=== PATIENT | female | born 1990 | race African-American/Black ===

== ENCOUNTER 2016-10-05 14:12 | Emergency (ER) | payer SELFPAY ==
[~2016-10-05] VITALS: Ht 157.5 cm; Wt 63.5 kg
[~2016-10-05 14:12] MED LIST: ACETAMINOPHEN-1 EAC1 ORAL; AMOXICILLIN500 MG ORAL; CEPHALEXIN500 MG ORAL; CIPRO500 MG PO; CIPROFLOXACIN500 M2 ORAL; COMPAZINE10 MG ORAL; DOXYCYCLINE MO100 MG ORAL; FLOMAX0.4 MG ORAL; IBUPROFEN600 MG ORAL; KEFLEX500 MG ORAL; METRONIDAZOLE500 MG ORAL; NAPROXEN375 M2 ORAL; NKM; NORCO 5-325 TA1 EACH ORAL; OMEPRAZOLE20 M2 ORAL; OMEPRAZOLE40 M1 ORAL; PERCOCET 5-3251 EACH ORAL; PROTONIX40 MG ORAL; REGLAN10 MG ORAL; TRAMADOL HCL50 MG ORAL; ZANTAC150 MG ORAL; ZOFRAN ODT4 MG ORAL; ZOFRAN4 MG ORAL
[2016-10-05] MEDS ORDERED: Morphine Sulfate 4mg/ml Inj IVP ONE ×2 (14:30→15:45)
[2016-10-05] MEDS ORDERED: Famotidine 20 MG/ 2ML VIAL IVP ONE (14:30)
[2016-10-05 15:01] LABS: BASOPHILS % (AUTO) 0.5 % (0.0-2.0); EOSINOPHILS % (AUTO) 0.7 % (0.0-3.0); LYMPHOCYTES % (AUTO) 38.4 % (20.0-45.0); MEAN CORPUSCULAR HEMOGLOBIN 28.6 PG (27.0-31.0); MEAN CORPUSCULAR HGB CONC 32.2 G/DL (32.0-36.0); MEAN CORPUSCULAR VOLUME 89 FL (80-99); MEAN PLATELET VOLUME 6.3 FL (6.5-10.1); MONOCYTES % (AUTO) 9.7 % (1.0-10.0); NEUTROPHILS % (AUTO) 50.6 % (45.0-75.0); PLATELET COUNT 270 K/UL (150-450); RED BLOOD COUNT 4.89 M/UL (4.20-5.40); RED CELL DISTRIBUTION WIDTH 12.6 % (11.6-14.8); WHITE BLOOD COUNT 10.1 K/UL (4.8-10.8)
[2016-10-05 15:18] VITALS: BP 100/79
[2016-10-05 15:20] LABS: ALANINE AMINOTRANSFERASE 14 U/L (3-33); ALBUMIN/GLOBULIN RATIO 1.5 (1.0-2.7); ANION GAP 19 (5-15); ASPARTATE AMINO TRANSFERASE 19 U/L (5-40); CARBON DIOXIDE 21 mEQ/L (20-30); CHLORIDE 102 mEQ/L (98-107); CREATININE 0.7 mg/dL (0.5-0.9); GLOMERULAR FILTRATION RATE > 60 mL/min (>60); HEMOLYSIS 2; LIPASE 18 U/L (< 60); POTASSIUM 3.6 mEQ/L (3.4-4.9); SODIUM 142 mEQ/L (135-145)
[2016-10-05 16:21] LABS: KETONES,URINE 3+ (NEGATIVE); LEUKOCYTE ESTERASE ,URINE NEGATIVE (NEGATIVE); NITRITE,URINE NEGATIVE (NEGATIVE); PH,URINE 8 (4.5-8.0); PROTEIN,URINE NEGATIVE (NEGATIVE); UROBILINOGEN,URINE NORMAL MG/DL (0.0-1.0)
[2016-10-05 16:23] LABS: APPEARANCE,URINE CLEAR
[2016-10-05] MEDS ORDERED: TRAMADOL HCL50 MG ORAL (16:51)
[2016-10-05] MEDS ORDERED: ZOFRAN ODT4 MG ORAL (16:51)
[2016-10-05 17:07] VITALS: BP 115/89
--- NOTE | 2016-10-05 18:17 | Emergency Room Report ---
History of Present Illness General Chief Complaint: Abdominal Pain Source: EMS Present Illness HPI 26-year-old female presents ED complaining of abdominal pain and vomiting. The symptoms started this morning. Pain is localized left lower quadrant, 10 of 10 , nonradiating. No aggravating relieving factors. Patient states she has history of kidney stones. Multiple episodes of vomiting. Denies fevers or chills. No other aggravating or relieving factors. Denies any other associated symptoms Allergies: Coded Allergies: ASCORBIC ACID (Verified Allergy, Unknown, 10/31/13) Uncoded Allergies: VITAMIN C (Allergy, Severe, 01/17/14) Patient History Past Medical History: none Past Surgical History: none Pertinent Family History: none Social History: Denies: alcohol use, drug use, smoking Last Menstrual Period: on period Now: No Immunizations: UTD Reviewed Nursing Documentation: PMH: Agreed, PSxH: Agreed Nursing Documentation-PMH Past Medical History: No History, Except For Hx Cancer: No Hx Neurological Problems: No Review of Systems All Other Systems: negative except mentioned in HPI Physical Exam Vital Signs Date Time Temp Pulse Resp B/P Pulse Ox O2 Delivery O2 Flow Rate FiO2 10/05/16 14:12 97.9 84 18 144/87 99 Room Air Sp02 EP Interpretation: reviewed, normal General Appearance: alert, GCS 15, non-toxic, mild distress Head: normocephalic Eyes: bilateral eye PERRL, bilateral eye normal inspection ENT: normal ENT inspection Neck: normal inspection Respiratory: chest non-tender, lungs clear, normal breath sounds, speaking full sentences Cardiovascular #1: regular rate, rhythm, no edema Gastrointestinal: normal bowel sounds, soft, non-distended, no guarding, no rebound, other - LLQ Rectal: deferred Genitourinary: no CVA tenderness Musculoskeletal: normal inspection Neurologic: alert, oriented x3, responsive, motor strength/tone normal, sensory intact, speech normal Psychiatric: normal inspection Skin: normal inspection Lymphatic: normal inspection Medical Decision Making Diagnostic Impression: Primary Impression: Cyclical vomiting Qualified Codes: G43.A0 - Cyclical vomiting, not intractable ER Course Hospital Course 26-year-old F presents to ED with LLQ with N/V. differential diagnosis: gastritis, diverticulitis, kidney stones Clinical course Patient placed on stretcher. 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 After initial history and physical I ordered labs, IV fluids, pain meds, Zofran, pepcid and CT labs - no leukocytosis, no electrolyte abnormalities, LFTs normal, UA unremarkable no blood in UA patient declines CT Upon reassessment, patient states pain has improved. Patient smokes marijuana. Likely cyclical vomiting syndrome I feel this is a highly complex case requiring extensive working including EKG/ Rhythm strip, Xray/CT/US, Blood/urine lab work, repeat exams while in ED, and administration of strong opiates/narcotics for pain control, admission to hospital or close patient follow up. Diagnosis -cyclical vomiting Stable and discharged to home with prescriptions for zofran, tramadol. Followup with PMD. Return to ED if symptoms recur or worsen Labs Test 10/05/16 14:30 10/05/16 15:50 White Blood Count 10.1 K/UL (4.8-10.8) Red Blood Count 4.89 M/UL (4.20-5.40) Hemoglobin 14.0 G/DL (12.0-16.0) Hematocrit 43.4 % (37.0-47.0) Mean Corpuscular Volume 89 FL (80-99) Mean Corpuscular Hemoglobin 28.6 PG (27.0-31.0) Mean Corpuscular Hemoglobin Concent 32.2 G/DL (32.0-36.0) Red Cell Distribution Width 12.6 % (11.6-14.8) Platelet Count 270 K/UL (150-450) Mean Platelet Volume 6.3 FL (6.5-10.1) Neutrophils (%) (Auto) 50.6 % (45.0-75.0) Lymphocytes (%) (Auto) 38.4 % (20.0-45.0) Monocytes (%) (Auto) 9.7 % (1.0-10.0) Eosinophils (%) (Auto) 0.7 % (0.0-3.0) Basophils (%) (Auto) 0.5 % (0.0-2.0) Sodium Level 142 mEQ/L (135-145) Potassium Level 3.6 mEQ/L (3.4-4.9) Chloride Level 102 mEQ/L (98-107) Carbon Dioxide Level 21 mEQ/L (20-30) Anion Gap 19 (5-15) Blood Urea Nitrogen 8 mg/dL (7-23) Creatinine 0.7 mg/dL (0.5-0.9) Estimat Glomerular Filtration Rate > 60 mL/min (>60) Glucose Level 116 mg/dL (74-106) Calcium Level 9.0 mg/dL (8.6-10.2) Total Bilirubin 0.6 mg/dL (0.0-1.2) Aspartate Amino Transf (AST/SGOT) 19 U/L (5-40) Alanine Aminotransferase (ALT/SGPT) 14 U/L (3-33) Alkaline Phosphatase 53 U/L (35-104) Total Protein 7.0 g/dL (6.6-8.7) Albumin 4.3 g/dL (3.5-5.2) Globulin 2.7 g/dL Albumin/Globulin Ratio 1.5 (1.0-2.7) Lipase 18 U/L (< 60) Urine Color Pale yellow Urine Appearance Clear Urine pH 8 (4.5-8.0) Urine Specific [place] 1.010 (1.005-1.035) Urine Protein Negative (NEGATIVE) Urine Glucose (UA) Negative (NEGATIVE) Urine Ketones 3+ (NEGATIVE) Urine Occult Blood Negative (NEGATIVE) Urine Nitrite Negative (NEGATIVE) Urine Bilirubin Negative (NEGATIVE) Urine Urobilinogen Normal MG/DL (0.0-1.0) Urine Leukocyte Esterase Negative (NEGATIVE) Urine HCG, Qualitative Negative Urine Opiates Screen Positive (NEGATIVE) Urine Barbiturates Screen Negative (NEGATIVE) Phencyclidine (PCP) Screen Negative (NEGATIVE) Urine Amphetamines Screen Negative (NEGATIVE) Urine Benzodiazepines Screen Negative (NEGATIVE) Urine Cocaine Screen Negative (NEGATIVE) Urine Marijuana (THC) Screen Positive (NEGATIVE) Last Vital Signs Date Time Temp Pulse Resp B/P Pulse Ox O2 Delivery O2 Flow Rate FiO2 10/05/16 17:07 97.2 68 15 115/89 100 Room Air Status: improved Disposition: HOME, SELF-CARE Condition: Stable Scripts Tramadol Hcl* (ULTRAM*) 50 Mg Tablet 50 MG ORAL Q6H Y for For Pain, #20 TAB 0 Refills Prov: CHERELLE CID M.D. 10/05/16 Ondansetron Odt* (ZOFRAN ODT*) 4 Mg Tab.rapdis 4 MG ORAL Q6H Y for Nausea & Vomiting, #30 TAB 0 Refills Prov: CHERELLE CID M.D. 10/05/16 Patient Instructions: Nausea, Adult, [id number] CHERELLE CID M.D. Oct 05, 2016 18:16
== END 2016-10-05 17:08 | disposition home or self-care (01) ==
LOC: EDBD 14:12 → EMR 14:20
DX: G43.A0 Cyclical vomiting, in migraine, not intractable (principal)
CPT/HCPCS: 36415; 80053; 80300; 81003; 81025; 83690; 85025; 96374; 96375; 99284; J2270; J2405; S0028

== ENCOUNTER 2016-11-02 15:25 | Emergency (ER) | payer SELFPAY ==
[~2016-11-02] VITALS: Ht 162.6 cm; Wt 52.2 kg
[2016-11-02 16:16] LABS: BASOPHILS % (AUTO) 0.5 % (0.0-2.0); EOSINOPHILS % (AUTO) 0.1 % (0.0-3.0); LYMPHOCYTES % (AUTO) 13.9 % (20.0-45.0); MEAN CORPUSCULAR HEMOGLOBIN 29.2 PG (27.0-31.0); MEAN CORPUSCULAR HGB CONC 33.4 G/DL (32.0-36.0); MEAN CORPUSCULAR VOLUME 87 FL (80-99); MEAN PLATELET VOLUME 6.1 FL (6.5-10.1); MONOCYTES % (AUTO) 10.8 % (1.0-10.0); NEUTROPHILS % (AUTO) 74.7 % (45.0-75.0); PLATELET COUNT 236 K/UL (150-450); RED BLOOD COUNT 4.49 M/UL (4.20-5.40); RED CELL DISTRIBUTION WIDTH 12.6 % (11.6-14.8); WHITE BLOOD COUNT 13.5 K/UL (4.8-10.8)
[2016-11-02] MEDS ORDERED: Ketorolac 30mg Inj IV ONE (16:30)
[2016-11-02 16:33] LABS: ALANINE AMINOTRANSFERASE 13 U/L (3-33); ALBUMIN/GLOBULIN RATIO 1.6 (1.0-2.7); ANION GAP 20 (5-15); ASPARTATE AMINO TRANSFERASE 16 U/L (5-40); CALCIUM 9.5 mg/dL (8.6-10.2); CARBON DIOXIDE 22 mEQ/L (20-30); CHLORIDE 97 mEQ/L (98-107); CREATININE 0.7 mg/dL (0.5-0.9); GLOMERULAR FILTRATION RATE > 60 mL/min (>60); HEMOLYSIS 3; LIPASE 20 U/L (< 60); POTASSIUM 3.1 mEQ/L (3.4-4.9); SODIUM 139 mEQ/L (135-145); TOTAL PROTEIN 7.3 g/dL (6.6-8.7)
[2016-11-02 16:59] VITALS: BP 123/65
[2016-11-02 18:23] LABS: APPEARANCE,URINE SLIGHTLY CLOUDY; KETONES,URINE 2+ (NEGATIVE); LEUKOCYTE ESTERASE ,URINE 2+ (NEGATIVE); NITRITE,URINE POSITIVE (NEGATIVE); PH,URINE 6.5 (4.5-8.0); PROTEIN,URINE 3+ (NEGATIVE); UROBILINOGEN,URINE 4 MG/DL (0.0-1.0)
[2016-11-02 18:38] LABS: BACTERIA,URINE MANY /HPF; RBC,URINE 40-60 /HPF (0 - 2); SQUAMOUS EPITHELIAL CELL,UR FEW /LPF (NONE/OCC)
[2016-11-02 18:40] LABS: AMORPHOUS SEDIMENT,UR FEW /LPF; ICTOTEST NEGATIVE; MUCUS,URINE FEW /LPF (NONE/OCC)
[2016-11-02] MEDS ORDERED: cefTRIAXone 1 GM in NS 55 ML IVPB ONE (19:00)
[2016-11-02] MEDS ORDERED: Morphine Sulfate 4mg/ml Inj IVP ONE (21:00)
--- NOTE | 2016-11-02 22:14 | Emergency Room Report ---
History of Present Illness General Chief Complaint: Abdominal Pain Source: Patient, EMS Present Illness HPI This patient states that she developed left lower quadrant abdominal pain suddenly about 2 days ago. She states this is very similar to previous kidney stone that she had. She states it feels exactly the same way. She is also had nausea but no vomiting. She denies fever or chills. She has been constipated. She has had blood in her urine. She denies dysuria. She has no other complaints. Allergies: Coded Allergies: ASCORBIC ACID (Verified Allergy, Unknown, 10/31/13) Uncoded Allergies: VITAMIN C (Allergy, Severe, 01/17/14) Patient History Past Medical History: see triage record, other - kidney stones Past Surgical History: none Social History: Denies: alcohol use, drug use, smoking Last Menstrual Period: 10/05/16 Now: No Reviewed Nursing Documentation: PMH: Agreed, PSxH: Agreed Nursing Documentation-PMH Past Medical History: No History, Except For Hx Cancer: No Hx Neurological Problems: No Review of Systems All Other Systems: negative except mentioned in HPI Physical Exam Vital Signs Date Time Temp Pulse Resp B/P Pulse Ox O2 Delivery O2 Flow Rate FiO2 11/02/16 15:18 99.0 79 16 120/74 98 11/02/16 16:59 Room Air Sp02 EP Interpretation: reviewed, normal General Appearance: no apparent distress, alert, GCS 15, non-toxic Head: normocephalic, atraumatic Eyes: bilateral eye PERRL, bilateral eye normal inspection ENT: hearing grossly normal, normal pharynx, no angioedema, normal voice Neck: full range of motion, supple/symm/no masses Respiratory: chest non-tender, lungs clear, normal breath sounds, speaking full sentences Cardiovascular #1: regular rate, rhythm, no edema Gastrointestinal: normal bowel sounds, soft, non-distended, no guarding, no rebound, tenderness - TTP LLQ Rectal: deferred Genitourinary: CVA tenderness (L) Musculoskeletal: back normal, gait/station normal, normal range of motion, non- tender Neurologic: alert, oriented x3, responsive, motor strength/tone normal, sensory intact, speech normal Psychiatric: judgement/insight normal, memory normal, mood/affect normal, no suicidal/homicidal ideation Skin: normal color, no rash, warm/dry, well hydrated Medical Decision Making Diagnostic Impression: Primary Impression: Kidney stone Additional Impression: UTI ER Course This patient presents with a left sided kidney stone. She also has a urinary tract infection. At this time she does not have obstruction of the ureter, however given the size of the stone and a urinary tract infection I felt that this patient should be admitted for IV antibiotics and monitoring. However, the patient declined and left AGAINST MEDICAL ADVICE. The patient did agree to take oral antibiotics and take Flomax. The patient was given very close return precautions and invited to return if she changed her mind. Labs Test 11/02/16 15:50 11/02/16 16:00 Urine Color Brown Urine Appearance Slightly cloudy Urine pH 6.5 (4.5-8.0) Urine Specific [place] 1.020 (1.005-1.035) Urine Protein 3+ (NEGATIVE) Urine Glucose (UA) Negative (NEGATIVE) Urine Ketones 2+ (NEGATIVE) Urine Occult Blood 5+ (NEGATIVE) Urine Nitrite Positive (NEGATIVE) Urine Bilirubin 1+ (NEGATIVE) Urine Ictotest Negative Urine Urobilinogen 4 MG/DL (0.0-1.0) Urine Leukocyte Esterase 2+ (NEGATIVE) Urine RBC 40-60 /HPF (0 - 2) Urine WBC 10-15 /HPF (0 - 2) Urine Squamous Epithelial Cells Few /LPF (NONE/OCC) Urine Amorphous Sediment Few /LPF (NONE) Urine Bacteria Many /HPF (NONE) Urine Mucus Few /LPF (NONE/OCC) Urine HCG, Qualitative Negative White Blood Count 13.5 K/UL (4.8-10.8) Red Blood Count 4.49 M/UL (4.20-5.40) Hemoglobin 13.1 G/DL (12.0-16.0) Hematocrit 39.2 % (37.0-47.0) Mean Corpuscular Volume 87 FL (80-99) Mean Corpuscular Hemoglobin 29.2 PG (27.0-31.0) Mean Corpuscular Hemoglobin Concent 33.4 G/DL (32.0-36.0) Red Cell Distribution Width 12.6 % (11.6-14.8) Platelet Count 236 K/UL (150-450) Mean Platelet Volume 6.1 FL (6.5-10.1) Neutrophils (%) (Auto) 74.7 % (45.0-75.0) Lymphocytes (%) (Auto) 13.9 % (20.0-45.0) Monocytes (%) (Auto) 10.8 % (1.0-10.0) Eosinophils (%) (Auto) 0.1 % (0.0-3.0) Basophils (%) (Auto) 0.5 % (0.0-2.0) Sodium Level 139 mEQ/L (135-145) Potassium Level 3.1 mEQ/L (3.4-4.9) Chloride Level 97 mEQ/L (98-107) Carbon Dioxide Level 22 mEQ/L (20-30) Anion Gap 20 (5-15) Blood Urea Nitrogen 8 mg/dL (7-23) Creatinine 0.7 mg/dL (0.5-0.9) Estimat Glomerular Filtration Rate > 60 mL/min (>60) Glucose Level 113 mg/dL (74-106) Calcium Level 9.5 mg/dL (8.6-10.2) Total Bilirubin 0.7 mg/dL (0.0-1.2) Aspartate Amino Transf (AST/SGOT) 16 U/L (5-40) Alanine Aminotransferase (ALT/SGPT) 13 U/L (3-33) Alkaline Phosphatase 57 U/L (35-104) Total Protein 7.3 g/dL (6.6-8.7) Albumin 4.5 g/dL (3.5-5.2) Globulin 2.8 g/dL Albumin/Globulin Ratio 1.6 (1.0-2.7) Lipase 20 U/L (< 60) Human Chorionic Gonadotropin, Qual Negative CT/MRI/US Diagnostic Results CT/MRI/US Diagnostic Results : Imaging Test Ordered: CT abd/pelvis Impression 6 mm nonobstructive stone a left kidney. Normal appendix. Left ovarian cyst 2- 3 cm. Last Vital Signs Date Time Temp Pulse Resp B/P Pulse Ox O2 Delivery O2 Flow Rate FiO2 11/02/16 16:59 98.9 83 19 123/65 98 Room Air Disposition: AGAINST MEDICAL ADVICE Condition: Serious Referrals: NOT CHOSEN [facility]/,REFERRING (PCP) ANA LILIA MENDEZ D.O. Nov 02, 2016 22:13
[2016-11-02] MEDS ORDERED: Tamsulosin 0.4mg cap ORAL ONE (22:15)
[2016-11-02] MEDS ORDERED: TAMSULOSIN HCL0.4 MG ORAL (22:16)
[2016-11-02] MEDS ORDERED: PERCOCET 5-3251 EACH ORAL (22:16)
[2016-11-02] MEDS ORDERED: NITROFURANTOIN100 M2 ORAL (22:16)
[2016-11-02 22:36] VITALS: BP 134/77
--- NOTE | 2016-11-03 09:38 | Diagnostic Imaging Report ---
Indication: Abdominal pain Technique: Continuous helical transaxial imaging of the abdomen and pelvis was obtained from the lung bases to the pubic symphysis. No intravenous contrast was administered. Coronal 2-D reformats were also obtained. Total Dose length Product (DLP): [address] Dose Index Volume (CTDIvol): 11 mGy Comparison: none Findings: There is a 6-7 mm stone in the left kidney lower pole. There is no hydronephrosis. The appendix is seen and appear normal. There is a cyst in the left ovary likely present measuring about 2.5 cm. There is no evidence of bowel obstruction, free fluid or free air. Evaluation of solid organs is limited on this study done without IV contrast material. Impression: Nonobstructive stone in the left kidney. Suggestion of left ovarian cyst Normal appendix The CT scanner at [facility] is accredited by the [employer] and the scans are performed using protocols designed to limit radiation exposure to as low as reasonably achievable to attain images of sufficient resolution adequate for diagnostic evaluation.
== END 2016-11-02 22:36 | disposition left against medical advice (07) ==
LOC: EDBD 15:25 → EMR 16:43 → CANBEDREQ 22:20 → EMR 22:36
DX: N20.0 Calculus of kidney (principal); N39.0 Urinary tract infection, site not specified
CPT/HCPCS: 36415; 74176; 80053; 81003; 81025; 83690; 84703; 85025; 87086; 96374; 96375; 99284; J0696; J1885; J2270; J2405

== ENCOUNTER 2016-12-23 07:37 | Emergency (ER) | payer SELFPAY ==
[~2016-12-23] VITALS: Ht 157.5 cm; Wt 59.0 kg
[~2016-12-23 07:37] MED LIST changes: +NITROFURANTOIN100 M2 ORAL; +TAMSULOSIN HCL0.4 MG ORAL
[2016-12-23] MEDS ORDERED: Morphine Sulfate 4mg/ml Inj IVP ONE (07:45)
[2016-12-23] MEDS ORDERED: Metoclopramide 10mg/2ml Inj IVP ONE (08:15)
[2016-12-23 08:33] VITALS: BP 108/79
[2016-12-23 08:40] LABS: MEAN CORPUSCULAR HEMOGLOBIN 29.5 PG (27.0-31.0); MEAN CORPUSCULAR HGB CONC 32.5 G/DL (32.0-36.0); MEAN CORPUSCULAR VOLUME 91 FL (80-99); MEAN PLATELET VOLUME 6.6 FL (6.5-10.1); PLATELET COUNT 239 K/UL (150-450); RED CELL DISTRIBUTION WIDTH 13.2 % (11.6-14.8)
[2016-12-23 08:40] LABS: APPEARANCE,URINE CLOUDY; KETONES,URINE 4+ (NEGATIVE); LEUKOCYTE ESTERASE ,URINE 1+ (NEGATIVE); NITRITE,URINE NEGATIVE (NEGATIVE); PH,URINE 8 (4.5-8.0); PROTEIN,URINE 1+ (NEGATIVE); UROBILINOGEN,URINE NORMAL MG/DL (0.0-1.0)
[2016-12-23 08:53] LABS: ALANINE AMINOTRANSFERASE 15 U/L (3-33); ALBUMIN/GLOBULIN RATIO 1.8 (1.0-2.7); ANION GAP 21 (5-15); ASPARTATE AMINO TRANSFERASE 19 U/L (5-40); CALCIUM 9.9 mg/dL (8.6-10.2); CARBON DIOXIDE 22 mEQ/L (20-30); CHLORIDE 101 mEQ/L (98-107); CREATININE 0.7 mg/dL (0.5-0.9); GLOMERULAR FILTRATION RATE > 60 mL/min (>60); HEMOLYSIS 2; LIPASE 23 U/L (< 60); SODIUM 144 mEQ/L (135-145); TOTAL PROTEIN 7.5 g/dL (6.6-8.7)
[2016-12-23 08:57] LABS: AMORPHOUS SEDIMENT,UR MANY /LPF; BACTERIA,URINE MODERATE /HPF; RBC,URINE 15-20 /HPF (0 - 2); SQUAMOUS EPITHELIAL CELL,UR FEW /LPF (NONE/OCC)
[2016-12-23 09:15] VITALS: BP 120/84
[2016-12-23] MEDS ORDERED: REGLAN10 MG ORAL (09:59)
[2016-12-23] MEDS ORDERED: NITROFURANTOIN100 M2 ORAL (09:59)
[2016-12-23 10:08] VITALS: BP 120/75
--- NOTE | 2016-12-23 12:01 | Diagnostic Imaging Report ---
Indication: Left flank pain nausea Technique: Mora-scale and duplex images of the upper abdomen were obtained Comparison: 04/08/2016 Findings: Gallbladder is unremarkable, without stones, wall thickening, nor pericholecystic fluid. Sonographic Harris's sign is negative. Common bile duct measures 2 mm in diameter. No intrahepatic biliary ductal dilatation. Liver demonstrates normal echogenicity, no focal abnormality. Portal vein and hepatic veins are patent. Pancreas is unremarkable. Spleen is unremarkable. Left kidney measures 11.3 cm in length. Right kidney measures 11.1 cm length. Both kidneys demonstrate normal echogenicity. There is no hydronephrosis. There are bilateral intrarenal. . Non-aneurysmal abdominal aorta . Impression: Bilateral nonobstructive intrarenal calculi. Note that than on the left is described on recent CT scan of 11/02/2016. That on the right is not seen on the prior CT scan, either artifactual or has developed in the interim Negative for gallstones, dilated ducts, or other acute or significant abnormality
[2016-12-23 12:54] LABS: NEUTROPHILS % (MANUAL) 83 % (45-75); TOTAL CELLS COUNTED 100
[2016-12-23 12:55] LABS: BAND NEUTROPHILS % (MANUAL) 3 % (0-8); BASOPHILS % (MANUAL) 0 % (0-2); EOSINOPHILS % (MANUAL) 0 % (0-3); LYMPHOCYTES % (MANUAL) 10 % (20-45); PLATELET ESTIMATE ADEQUATE
[2016-12-23 12:56] LABS: PLATELET MORPHOLOGY NORMAL
--- NOTE | 2016-12-23 13:11 | Emergency Room Report ---
History of Present Illness General Chief Complaint: Abdominal Pain Source: Patient, Medical Record Present Illness HPI 26YOF with left sided abd pain, intermittent, sharp, 10/10 for 2 days. Assoc with nausea/vomiting. Was seen/evaluated here recently. had non-obstructing 6mm stone in left kidney on CT. At time of my ED evaluation patient states "I passed the stone." Denies urinary complaints. Allergies: Coded Allergies: ASCORBIC ACID (Verified Allergy, Unknown, 10/31/13) Uncoded Allergies: VITAMIN C (Allergy, Severe, 01/17/14) Patient History Past Medical History: other - Renal stones, cyclical vomiitng Past Surgical History: none Pertinent Family History: none Social History: Denies: alcohol use, drug use, smoking Last Menstrual Period: 12/22/16 Now: No Immunizations: UTD Reviewed Nursing Documentation: PMH: Agreed, PSxH: Agreed Nursing Documentation-PMH Past Medical History: No History, Except For Hx Cancer: No Hx Gastrointestinal Problems: Yes - kidney stone Hx Neurological Problems: No Review of Systems All Other Systems: negative except mentioned in HPI Physical Exam Vital Signs Date Time Temp Pulse Resp B/P Pulse Ox O2 Delivery O2 Flow Rate FiO2 12/23/16 07:30 97.5 65 18 122/73 100 Room Air Sp02 EP Interpretation: reviewed, abnormal General Appearance: normal inspection, well appearing, alert, GCS 15, non-toxic , moderate distress, other - Writhing on stretcher Head: normocephalic, atraumatic Eyes: bilateral eye EOMI, bilateral eye PERRL ENT: normal ENT inspection, hearing grossly normal, normal voice Neck: normal inspection, full range of motion, supple, no bony tend Respiratory: normal inspection, lungs clear, normal breath sounds, no respiratory distress, no retraction, no wheezing Cardiovascular #1: regular rate, rhythm, no edema Gastrointestinal: normal inspection, normal bowel sounds, soft, no guarding, no hernia, other - Hyperasthesia to any area of palpation of abdomen Genitourinary: no CVA tenderness Musculoskeletal: normal inspection, back normal, normal range of motion, Keisha' s Sign negative Neurologic: normal inspection, alert, oriented x3, responsive, mannequin coloring artist III-XII nml as tested, DTRs symmetric, speech normal Psychiatric: normal inspection, judgement/insight normal, mood/affect normal Skin: normal inspection, normal color, no rash Lymphatic: normal inspection Medical Decision Making Diagnostic Impression: Primary Impression: abdominal pain Additional Impression: Cyclical vomiting Qualified Codes: G43.A0 - Cyclical vomiting, not intractable ER Course Cyclical vomiting - Utox positive for MJ - Likely contributing to leuks 15K (had 13k leuks on recent ED visit) - Improved after IV zofran and IV reglan. Tolerating PO in ED - Rx Reglan - patient states this helps for vomiting UTI - Possibly also related to leukocytosis - Rx Macrobid given - Given left sided pain, possibly pyelo but no CVAT, afebrile and no systemic symptoms Abd sono does NOT demonstrate perinephric stranding or hydro so I doubt obstructive renal stone at this stage Advised PMD followup DC home Last Vital Signs Date Time Temp Pulse Resp B/P Pulse Ox O2 Delivery O2 Flow Rate FiO2 12/23/16 10:08 97.5 88 25 120/75 100 Room Air Status: improved Disposition: HOME, SELF-CARE Condition: Improved Scripts Nitrofurantoin Monohyd/M-Cryst* (MACROBID 100 MG*) 100 Mg Capsule 100 MG ORAL EVERY 12 HOURS for 7 Days, #14 CAP Prov: COREY STOLL M.D. 12/23/16 Metoclopramide Hcl* (REGLAN*) 10 Mg Tablet 10 MG ORAL THREE TIMES A DAY for 7 Days, #20 % Prov: COREY STOLL M.D. 12/23/16 Referrals: NOT CHOSEN IPA/,REFERRING (PCP) Patient Instructions: Dysuria Additional Instructions: - Take ALL antibiotics for UTI - Take reglan as needed for nausea/vomiting - Follow up with your doctor in 2-3 days COREY STOLL M.D. Dec 23, 2016 13:11
== END 2016-12-23 10:08 | disposition home or self-care (01) ==
LOC: EDBD 07:37 → EMR 08:08
DX: R10.9 Unspecified abdominal pain (principal); G43.A0 Cyclical vomiting, in migraine, not intractable; N20.0 Calculus of kidney
CPT/HCPCS: 36415; 76700; 80053; 80300; 81003; 81025; 83690; 85007; 85025; 87086; 96374; 96375; 99284; J2270; J2405; J2765

== ENCOUNTER 2017-04-06 22:10 | Emergency (ER) | payer SELFPAY ==
[~2017-04-06] VITALS: Ht 157.5 cm; Wt 57.6 kg
[2017-04-06] MEDS ORDERED: NKM (22:18)
[2017-04-06 22:20] VITALS: BP 136/82
--- NOTE | 2017-04-06 22:24 | Emergency Room Report ---
History of Present Illness General Chief Complaint: Chest Pain Source: Patient Present Illness HPI A 27-year-old female with a history of kidney stone. She's been here and other hospital multiple times for kidney stone attack. She presents with abdominal pain in the left lower quadrant. Has nausea vomiting and diarrhea. Onset yesterday. Now with chest pain from vomiting. No fever no chills. Pain is 10 out of 10. EMS gave her Zofran. Denies any other complaint. Similar symptom in the past. Denies any frequency or hematuria. Allergies: Coded Allergies: ASCORBIC ACID (Verified Allergy, Unknown, 10/31/13) Uncoded Allergies: VITAMIN C (Allergy, Severe, 01/17/14) Patient History Past Medical History: see triage record, old chart reviewed Past Surgical History: other Pertinent Family History: none Social History: Reports: smoking Last Menstrual Period: 04/05/17 Now: No Immunizations: other Reviewed Nursing Documentation: PMH: Agreed, PSxH: Agreed Nursing Documentation-PMH Past Medical History: No History, Except For Hx Cancer: No Hx Gastrointestinal Problems: No - Kidney stones Hx Neurological Problems: No Review of Systems Eye: Denies: blurred vision, eye pain ENT: Denies: ear pain, nose congestion, throat swelling Respiratory: Denies: cough, shortness of breath Cardiovascular: Reports: chest pain, Denies: palpitations Gastrointestinal: Reports: abdominal pain, diarrhea, nausea, vomiting Musculoskeletal: Denies: back pain, joint pain Skin: Denies: rash Neurological: Denies: headache, numbness Endocrine: Denies: increased thirst, increased urine Hematologic/Lymphatic: Denies: easy bruising All Other Systems: negative except mentioned in HPI Physical Exam Vital Signs Date Time Temp Pulse Resp B/P Pulse Ox O2 Delivery O2 Flow Rate FiO2 04/06/17 22:13 99.1 58 16 136/82 99 Room Air vitals normal Sp02 EP Interpretation: reviewed, normal General Appearance: well appearing, no apparent distress, alert Head: normocephalic, atraumatic Eyes: bilateral eye EOMI, bilateral eye PERRL ENT: hearing grossly normal, normal pharynx Neck: full range of motion, supple, no meningismus Respiratory: chest non-tender, lungs clear, normal breath sounds Cardiovascular #1: regular rate, rhythm, no murmur Gastrointestinal: normal bowel sounds, no mass, no organomegaly, no bruit, non- distended, tenderness - Left lower quadrant Musculoskeletal: back normal, gait/station normal, normal range of motion Psychiatric: mood/affect normal Skin: warm/dry Medical Decision Making Diagnostic Impression: Primary Impression: Abdominal pain Qualified Codes: R10.84 - Generalized abdominal pain Additional Impression: Cyclic vomiting syndrome Qualified Codes: G43.A0 - Cyclical vomiting, not intractable ER Course Issue with recurrent abdominal pain and vomiting. Most likely cyclic vomiting syndrome. May be secondary to drug withdrawal. She has a history of cocaine abuse. Better now. No evidence of dehydration. We'll discharge him. Elevated WBC probably secondary to stress response or vomiting. She has a left kidney stone which is not causing this problem. Lab Results Impression labs unremarkable CT/MRI/US Diagnostic Results CT/MRI/US Diagnostic Results : Imaging Test Ordered: CT abdomen Impression Read by radiologist. Nonobstructive left kidney stone. Normal appendix. Last Vital Signs Date Time Temp Pulse Resp B/P Pulse Ox O2 Delivery O2 Flow Rate FiO2 04/06/17 22:13 99.1 58 16 136/82 99 Room Air Status: improved Disposition: HOME, SELF-CARE Condition: Stable Scripts Ondansetron Odt* (ZOFRAN ODT*) 4 Mg Tab.rapdis 4 MG ORAL Q6H Y for Nausea & Vomiting, #20 TAB 0 Refills Prov: JUAN ZIMMERMAN M.D. 04/07/17 Dicyclomine Hcl* (BENTYL*) 10 Mg Capsule 10 MG ORAL FOUR TIMES A DAY, #30 CAP Prov: JUAN ZIMMERMAN M.D. 04/07/17 Additional Instructions: Stop marijuana to see if this will help reduce your symptom. Followup with your DrChrista in 2 to 3 days. Return if worse. JUAN ZIMMERMAN M.D. Apr 06, 2017 22:24
[2017-04-06] MEDS ORDERED: Ketorolac 30mg Inj IV ONE (22:30)
[2017-04-06 22:44] LABS: APPEARANCE,URINE CLEAR; KETONES,URINE 4+ (NEGATIVE); LEUKOCYTE ESTERASE ,URINE 1+ (NEGATIVE); NITRITE,URINE NEGATIVE (NEGATIVE); PH,URINE 6.5 (4.5-8.0); PROTEIN,URINE 2+ (NEGATIVE); UROBILINOGEN,URINE NORMAL MG/DL (0.0-1.0)
[2017-04-06 22:55] LABS: MEAN CORPUSCULAR HEMOGLOBIN 30.4 PG (27.0-31.0); MEAN CORPUSCULAR HGB CONC 33.9 G/DL (32.0-36.0); MEAN CORPUSCULAR VOLUME 90 FL (80-99); MEAN PLATELET VOLUME 6.7 FL (6.5-10.1); PLATELET COUNT 221 K/UL (150-450); RED BLOOD COUNT 4.61 M/UL (4.20-5.40); RED CELL DISTRIBUTION WIDTH 12.6 % (11.6-14.8)
[2017-04-06 22:56] LABS: BACTERIA,URINE FEW /HPF; SQUAMOUS EPITHELIAL CELL,UR FEW /LPF (NONE/OCC)
[2017-04-06 23:04] LABS: ALANINE AMINOTRANSFERASE 14 U/L (3-33); ALBUMIN/GLOBULIN RATIO 1.5 (1.0-2.7); ANION GAP 19 (5-15); ASPARTATE AMINO TRANSFERASE 17 U/L (5-40); CALCIUM 9.9 mg/dL (8.6-10.2); CARBON DIOXIDE 17 mEQ/L (20-30); CHLORIDE 104 mEQ/L (98-107); CREATININE 0.8 mg/dL (0.5-0.9); GLOMERULAR FILTRATION RATE > 60 mL/min (>60); HEMOLYSIS 1; LIPASE 13 U/L (< 60); POTASSIUM 3.7 mEQ/L (3.4-4.9); SODIUM 140 mEQ/L (135-145); TOTAL PROTEIN 7.7 g/dL (6.6-8.7)
[2017-04-06 23:24] LABS: BAND NEUTROPHILS % (MANUAL) 2 % (0-8); BASOPHILS % (MANUAL) 0 % (0-2); EOSINOPHILS % (MANUAL) 0 % (0-3); LYMPHOCYTES % (MANUAL) 10 % (20-45); NEUTROPHILS % (MANUAL) 85 % (45-75); PLATELET ESTIMATE ADEQUATE; PLATELET MORPHOLOGY NORMAL; TOTAL CELLS COUNTED 100
[2017-04-07] MEDS ORDERED: ZOFRAN ODT4 MG ORAL (00:30)
[2017-04-07] MEDS ORDERED: BENTYL10 MG ORAL (00:30)
[2017-04-07] MEDS ORDERED: Morphine Sulfate 4mg/ml Inj IVP ONE (00:30)
[2017-04-07 00:45] VITALS: BP 125/80
--- NOTE | 2017-04-07 10:02 | Diagnostic Imaging Report ---
Indication: Abdominal pain Technique: Continuous helical transaxial imaging of the abdomen and pelvis was obtained from the lung bases to the pubic symphysis. No intravenous contrast was administered. Coronal 2-D reformats were also obtained. Total Dose length Product (DLP): [address] Dose Index Volume (CTDIvol): 11 mGy Comparison: 11/02/16 Findings: There is no hydronephrosis. There is a stone demonstrated in the left kidney measuring 6 mm. A faint calcific density is also demonstrated within the central part of both kidneys. Findings may represent a medullary nephrocalcinosis or sponge kidney. Similar findings seen previously. The appendix is partially seen and appears normal. There are no secondary signs of appendicitis. There is no free fluid or free air. No evidence of bowel obstruction. Uterus noted. Urinary bladder is nondistended. The lung bases are clear Impression: Nonobstructive 6 mm stone in the left kidney. Suspected medullary nephrocalcinosis. Please correlate clinically. No change from the prior study The CT scanner at [facility] is accredited by the [employer] and the scans are performed using dose optimization techniques as appropriate to a performed exam including Automatic Exposure control.
== END 2017-04-07 00:45 | disposition home or self-care (01) ==
LOC: EDBD 22:10 → EMR 22:23
DX: R10.84 Generalized abdominal pain (principal); G43.A0 Cyclical vomiting, in migraine, not intractable; Z88.8 Allergy status to other drugs, medicaments and biological substances; F17.200 Nicotine dependence, unspecified, uncomplicated; N20.0 Calculus of kidney
CPT/HCPCS: 36415; 74176; 80053; 80300; 81003; 81025; 83690; 85007; 85025; 96361; 96374; 96375; 99284; J1885; J2270; J2405

== ENCOUNTER 2017-05-30 13:09 | Emergency (ER) | payer SELFPAY ==
[~2017-05-30] VITALS: Ht 157.5 cm; Wt 58.5 kg
[~2017-05-30 13:09] MED LIST changes: +BENTYL10 MG ORAL
[2017-05-30] MEDS ORDERED: Norco 7.5mg/325mg tab ORAL ONE (13:30)
[2017-05-30 14:25] LABS: BASOPHILS % (AUTO) 0.7 % (0.0-2.0); EOSINOPHILS % (AUTO) 0.3 % (0.0-3.0); LYMPHOCYTES % (AUTO) 12.2 % (20.0-45.0); MEAN CORPUSCULAR HEMOGLOBIN 30.7 PG (27.0-31.0); MEAN CORPUSCULAR HGB CONC 34.3 G/DL (32.0-36.0); MEAN CORPUSCULAR VOLUME 90 FL (80-99); MEAN PLATELET VOLUME 6.4 FL (6.5-10.1); MONOCYTES % (AUTO) 8.6 % (1.0-10.0); NEUTROPHILS % (AUTO) 78.2 % (45.0-75.0); PLATELET COUNT 236 K/UL (150-450); RED BLOOD COUNT 4.28 M/UL (4.20-5.40); RED CELL DISTRIBUTION WIDTH 11.9 % (11.6-14.8); WHITE BLOOD COUNT 13.8 K/UL (4.8-10.8)
[2017-05-30 14:28] VITALS: BP 147/78
[2017-05-30 14:43] LABS: ANION GAP 15 (5-15); CALCIUM 9.3 mg/dL (8.6-10.2); CARBON DIOXIDE 24 mEQ/L (20-30); CHLORIDE 97 mEQ/L (98-107); CREATININE 0.6 mg/dL (0.5-0.9); GLOMERULAR FILTRATION RATE > 60 mL/min (>60); HEMOLYSIS 89; POTASSIUM 3.7 mEQ/L (3.4-4.9); SODIUM 136 mEQ/L (135-145)
[2017-05-30] MEDS ORDERED: Morphine Sulfate 4mg/ml Inj IM ONE (15:30)
--- NOTE | 2017-05-30 16:14 | Emergency Room Report ---
History of Present Illness General Chief Complaint: Skin Rash/Abscess Source: Patient Present Illness HPI 27-year-old female presents to the emergency department complaining of 10 out of 10 in severity pain, swelling, erythema of progressive in the lower right buttock. The rectum times one week. Patient states she's been applying Aloe vera in hopes that her symptoms would resolve. Patient states they have not so she is presented to the emergency department for evaluation. Patient states in the past she has had a spider bite near that area which required drainage. Patient denies fevers, chills, abdominal pain, nausea, vomiting. Patient denies past medical history and states she is otherwise healthy.Denies CP, Palpitations, LOC, AMS, dizziness, Changes in Vision, Sensation, paresthesias, or a sudden severe headache. Allergies: Coded Allergies: ASCORBIC ACID (Verified Allergy, Unknown, 10/31/13) Uncoded Allergies: VITAMIN C (Allergy, Severe, 01/17/14) Patient History Past Medical History: see triage record Past Surgical History: none Pertinent Family History: none Last Menstrual Period: 05/04/2017 Now: No Immunizations: UTD Reviewed Nursing Documentation: PMH: Agreed, PSxH: Agreed Nursing Documentation-PMH Past Medical History: No History, Except For Hx Cancer: No Hx Gastrointestinal Problems: No - Kidney stones Hx Neurological Problems: No Review of Systems All Other Systems: negative except mentioned in HPI Physical Exam Vital Signs Date Time Temp Pulse Resp B/P (MAP) Pulse Ox O2 Delivery O2 Flow Rate FiO2 05/30/17 13:11 98.6 64 15 147/78 98 Room Air Sp02 EP Interpretation: reviewed, normal General Appearance: no apparent distress, alert, GCS 15, non-toxic Head: normocephalic, atraumatic Eyes: bilateral eye normal inspection, bilateral eye PERRL ENT: hearing grossly normal, normal voice Neck: full range of motion Respiratory: lungs clear, normal breath sounds, speaking full sentences Cardiovascular #1: regular rate, rhythm Gastrointestinal: normal bowel sounds, non tender, soft, no guarding, no rebound Rectal: deferred, tenderness - swelling, erythema, induration and increased temperature to palpation to a 5cm area of the right buttock Musculoskeletal: back normal, gait/station normal, normal range of motion Neurologic: alert, oriented x3, responsive, motor strength/tone normal, sensory intact, speech normal Psychiatric: judgement/insight normal, memory normal, mood/affect normal Skin: normal color, no rash, warm/dry, well hydrated, other - 5cm area of erytehma, induration, fluctuance, and increased temperature to palpation just to the right of the anus extending into the right lower buttock. Lymphatic: no adenopathy Procedures Incision and Drainage Incision and Drainage : Consent: Verbal Site: right buttock Blade Size: 11 I & D Procedure: betadine prep Wound Location: lower extremity - right buttock Wound's Depth, Shape: superficial Wound Length (cm): 1 Wound Explored: contaminated - moderate purulent drainage is expressed Anesthesia: 1% Lidocaine Volume Anesthetic (ccs): 2 Patient Tolerated: Well Complications: None Medical Decision Making PA Attestation Dr. Shannon is my supervising Physician whom patient management has been discussed with. Diagnostic Impression: Primary Impression: Abscess Additional Impression: Perianal abscess ER Course 27-year-old female presents to the emergency department complaining of 10 out of 10 in severity pain, swelling, erythema of progressive in the lower right buttock. The rectum times one week. Patient states she's been applying Aloe vera in hopes that her symptoms would resolve. Patient states they have not so she is presented to the emergency department for evaluation. Patient states in the past she has had a spider bite near that area which required drainage. Patient denies fevers, chills, abdominal pain, nausea, vomiting. Patient denies past medical history and states she is otherwise healthy.Denies CP, Palpitations, LOC, AMS, dizziness, Changes in Vision, Sensation, paresthesias, or a sudden severe headache. Ddx considered but are not limited to cellulitis, abscess, cystic acne, necrotizing fasciitis, insect bite. Vital signs: are WNL, pt. is afebrile H&PE are most consistent with soft tissue rectal area abscess, will r/o fistulas or perirectal abscess with imaging. ORDERS: -CBC: elevated wbc's at 13.8 -BMP: mild hypochloremia -Urine hcg: Negative -CT Abdomen and Pelvis with contrast: 3 cm abscess within the medial right gluteal fold, and right ovarian cyst per official radiology report- please refer to official documentation for more detailed measurements. ED INTERVENTIONS: -IV ABX: Unasyn and Flagyl. -I & D. This pt. was complex and required laboratory work up , with radiological studies, administration of IV antibiotics and strong opiate medications. DISCHARGE: At this time pt. is stable for d/c to home. Will provide printed patient care instructions, and any necessary prescriptions. Care plan and follow up instructions have been discussed with the patient prior to discharge. Labs Test 05/30/17 13:50 05/30/17 16:00 White Blood Count 13.8 K/UL (4.8-10.8) Red Blood Count 4.28 M/UL (4.20-5.40) Hemoglobin 13.2 G/DL (12.0-16.0) Hematocrit 38.4 % (37.0-47.0) Mean Corpuscular Volume 90 FL (80-99) Mean Corpuscular Hemoglobin 30.7 PG (27.0-31.0) Mean Corpuscular Hemoglobin Concent 34.3 G/DL (32.0-36.0) Red Cell Distribution Width 11.9 % (11.6-14.8) Platelet Count 236 K/UL (150-450) Mean Platelet Volume 6.4 FL (6.5-10.1) Neutrophils (%) (Auto) 78.2 % (45.0-75.0) Lymphocytes (%) (Auto) 12.2 % (20.0-45.0) Monocytes (%) (Auto) 8.6 % (1.0-10.0) Eosinophils (%) (Auto) 0.3 % (0.0-3.0) Basophils (%) (Auto) 0.7 % (0.0-2.0) Sodium Level 136 mEQ/L (135-145) Potassium Level 3.7 mEQ/L (3.4-4.9) Chloride Level 97 mEQ/L (98-107) Carbon Dioxide Level 24 mEQ/L (20-30) Anion Gap 15 (5-15) Blood Urea Nitrogen 5 mg/dL (7-23) Creatinine 0.6 mg/dL (0.5-0.9) Estimat Glomerular Filtration Rate > 60 mL/min (>60) Glucose Level 72 mg/dL (74-106) Calcium Level 9.3 mg/dL (8.6-10.2) Human Chorionic Gonadotropin, Qual Negative Last Vital Signs Date Time Temp Pulse Resp B/P (MAP) Pulse Ox O2 Delivery O2 Flow Rate FiO2 05/30/17 14:31 98.6 05/30/17 14:28 82 15 147/78 98 Room Air Disposition: HOME, SELF-CARE Condition: Stable Scripts Ibuprofen* (MOTRIN*) 600 Mg Tablet 600 MG ORAL THREE TIMES A DAY, #30 TAB 0 Refills Prov: Radha WeberA. 05/30/17 Hydrocodone Bit/Acetaminophen 5-325* (NORCO 5-325*) 1 Each Tablet 1 TAB ORAL Q6H Y for For Pain, #9 TAB 0 Refills Prov: Radha Weber.AChrista 05/30/17 Metronidazole* (FLAGYL*) 500 Mg Tablet 500 MG ORAL BID for 7 Days, #14 TAB 0 Refills Prov: Radha Weber 05/30/17 Cephalexin* (KEFLEX*) 500 Mg Capsule 500 MG ORAL EVERY 12 HOURS, #14 CAP 0 Refills Prov: Radha WeberAChrista 05/30/17 Referrals: NOT CHOSEN [facility],REFERRING (PCP) Departure Forms: Return to Work Return to Work Date: Jun 04, 2017 Return to Full Activity: Jun 04, 2017 Patient Instructions: Abscess Additional Instructions: Take medications as directed. Follow up with a Primary Care Provider in 3-5 days, even if your symptoms have resolved. --Please review list of primary care clinics, if you do not already have a primary care provider Return sooner to ED if new symptoms occur, or current symptoms become worse. Do not drink alcohol, drive, or operate heavy machinery while taking [place] as this may cause drowsiness. - Please note that this Emergency Department Report was dictated using [employer] driver technology software, occasionally this can lead to erroneous entry secondary to interpretation by the dictation equipment. Radha Weber May 30, 2017 16:14
[2017-05-30] MEDS ORDERED: Morphine Sulfate 4mg/ml Inj IVP ONE (17:30)
[2017-05-30] MEDS ORDERED: Ampicillin/Sulbactam Sod 3 GM in NS 110 ML IVPB ONE (17:45)
[2017-05-30] MEDS ORDERED: Unasyn 3gm Inj ONE (18:33)
[2017-05-30 19:00] VITALS: BP 128/89
[2017-05-30] MEDS ORDERED: Lidocaine 1% MPF 10mg/ml 5ml IM ONE (19:00)
[2017-05-30] MEDS ORDERED: IBUPROFEN600 MG ORAL (19:10)
[2017-05-30] MEDS ORDERED: NORCO 5-325 TA1 EACH ORAL (19:10)
[2017-05-30] MEDS ORDERED: METRONIDAZOLE500 MG ORAL (19:10)
[2017-05-30] MEDS ORDERED: CEPHALEXIN500 MG ORAL (19:10)
[2017-05-30] MEDS ORDERED: Morphine Sulfate 2mg/ml Inj IVP ONE (19:45)
[2017-05-30 20:00] VITALS: BP 128/89
--- NOTE | 2017-05-31 09:40 | Diagnostic Imaging Report ---
Indication: Abdominal pain Technique: Continuous helical transaxial imaging of the abdomen and pelvis was obtained from the lung bases to the pubic symphysis during intravenous contrast administration. Coronal 2-D reformats were also obtained. Study obtained in a Siemens sensation [address] Total Dose length Product (DLP): [address] Dose Index Volume (CTDIvol): 11.6, 0.15 mGy Comparison: 04/09/15 Findings: There is approximately 3 cm superficial, subcutaneous abscess seen as a focus of a rim enhancement and a lower attenuation center demonstrated within the right medial gluteal fold. Some surrounding inflammation noted. There is no evidence of intrapelvic or intra-abdominal abscess, free fluid or free air. Stomach is moderately distended. The gallbladder is contracted. Solid organs including the liver, kidneys, spleen and pancreas appear unremarkable. There is a 1 cm right ovarian cyst noted. Uterus is noted. Few inguinal nodes are present. Impression: 3 cm abscess within the medial right gluteal fold. 1 cm right ovarian cyst [facility] has communicated the preliminary results to the Emergency Department. Their findings are largely concordant with this report. The CT scanner at [facility] is accredited by the [employer] and the scans are performed using dose optimization techniques as appropriate to a performed exam including Automatic Exposure control.
== END 2017-05-30 20:00 | disposition home or self-care (01) ==
LOC: EMR 13:50
DX: L02.31 Cutaneous abscess of buttock (principal); R10.9 Unspecified abdominal pain; N83.201 Unspecified ovarian cyst, right side
CPT/HCPCS: 10060; 36415; 74177; 80048; 84703; 85025; 96365; 96372; 96375; 96376; 99284; J0295; J2270; Q9967

== ENCOUNTER 2018-03-03 22:05 | Emergency (ER) | payer MEDICAID, OTHER ==
[~2018-03-03] VITALS: Ht 157.5 cm; Wt 56.7 kg
[2018-03-03 23:15] VITALS: BP 126/79
[2018-03-03] MEDS ORDERED: Haloperidol Lactate 5 MG in D5W 55 ML IVPB ONE (23:15)
[2018-03-03] MEDS ORDERED: Promethazine HCl 25 MG in NS 55 ML IVPB ONE (23:15)
[2018-03-03 23:25] LABS: HEMATOCRIT 39.7 % (37.0-47.0); HEMOGLOBIN 13.1 G/DL (12.0-16.0); MEAN CORPUSCULAR VOLUME 88 FL (80-99); PLATELET COUNT 213 K/UL (150-450); RED BLOOD COUNT 4.52 M/UL (4.20-5.40); RED CELL DISTRIBUTION WIDTH 12.2 % (11.6-14.8)
[2018-03-03 23:38] LABS: ANION GAP 13 mmol/L (5-15); BLOOD UREA NITROGEN 10 mg/dL (7-18); CALCIUM 9.1 MG/DL (8.5-10.1); CARBON DIOXIDE 20 MMOL/L (21-32); CHLORIDE 107 MMOL/L (98-107); CREATININE 0.6 MG/DL (0.55-1.30); POTASSIUM 5.5 MMOL/L (3.5-5.1); SODIUM 140 MMOL/L (136-145)
[2018-03-03] MEDS ORDERED: ZOFRAN4 MG ORAL (23:56)
--- NOTE | 2018-03-03 23:57 | Emergency Room Report ---
History of Present Illness General Chief Complaint: Abdominal Pain Source: Patient Present Illness HPI This is a 28-year-old female with a history of cyclic vomiting syndrome. She has multiple admission here. She has multiple CT scan in the past. She presents with chief complaint abdominal pain with nausea vomiting. Onset today. Still smoking marijuana. Similar symptom in the past. No fever or chills. No diarrhea. No urinary complaint. Pain is 9 out of 10, crampy in nature. Allergies: Coded Allergies: ASCORBIC ACID (Verified Allergy, Unknown, 10/31/13) Uncoded Allergies: VITAMIN C (Allergy, Severe, 01/17/14) Patient History Past Medical History: see triage record, old chart reviewed Past Surgical History: other Pertinent Family History: none Social History: Denies: smoking Last Menstrual Period: on period Now: No Immunizations: other Reviewed Nursing Documentation: PMH: Agreed; PSxH: Agreed Nursing Documentation-PMH Hx Cancer: No Hx Gastrointestinal Problems: No - Kidney stones Hx Neurological Problems: No Review of Systems Eye: Denies: eye pain, blurred vision ENT: Denies: ear pain, nose congestion, throat swelling Respiratory: Denies: cough, shortness of breath Cardiovascular: Denies: chest pain, palpitations Gastrointestinal: Reports: abdominal pain, nausea, vomiting; Denies: diarrhea Musculoskeletal: Denies: back pain, joint pain Skin: Denies: rash Neurological: Denies: headache, numbness Endocrine: Denies: increased thirst, increased urine Hematologic/Lymphatic: Denies: easy bruising All Other Systems: negative except mentioned in HPI Physical Exam Vital Signs Date Time Temp Pulse Resp B/P (MAP) Pulse Ox O2 Delivery O2 Flow Rate FiO2 03/03/18 22:11 98.0 45 18 132/79 98 Room Air 98.1 vitals normal. Heart rate is 90. Sp02 EP Interpretation: reviewed, normal General Appearance: well appearing, no apparent distress, alert Head: normocephalic, atraumatic Eyes: bilateral eye PERRL, bilateral eye EOMI ENT: hearing grossly normal, normal pharynx Neck: full range of motion, supple, no meningismus Respiratory: chest non-tender, lungs clear, normal breath sounds Cardiovascular #1: regular rate, rhythm, no murmur Gastrointestinal: no mass, no organomegaly, no bruit, non-distended, tenderness - mild, diffuse, decreased bowel sounds Musculoskeletal: back normal, gait/station normal, normal range of motion Psychiatric: mood/affect normal Skin: warm/dry Medical Decision Making Diagnostic Impression: Primary Impression: Abdominal pain Qualified Codes: R10.84 - Generalized abdominal pain Additional Impressions: Opiate dependence Qualified Codes: F11.20 - Opioid dependence, uncomplicated Cyclical vomiting Qualified Codes: G43.A0 - Cyclical vomiting, not intractable ER Course Patient with abdominal pain with vomiting. This consistent with her cyclic vomiting syndrome. This may be secondary to withdrawal and/or secondary to marijuana. No evidence of acute abdomen. She is comfortable now. There is no evidence of any prolonged QT interval on monitor. She has a leukocytosis. This is probably secondary to stress response or vomiting. No evidence of an acute abdomen. We'll discharge home. She refused to give her urine sample. Lab Results Impression labs with leukocytosis Last Vital Signs Date Time Temp Pulse Resp B/P (MAP) Pulse Ox O2 Delivery O2 Flow Rate FiO2 03/03/18 22:11 98.0 45 18 132/79 98 Room Air 98.1 Status: unchanged Disposition: HOME, SELF-CARE Condition: Stable Scripts Ondansetron (Zofran) 4 Mg Tablet 4 MG ORAL Q6H PRN for Nausea & Vomiting, #30 TAB 0 Refills Prov: JUAN ZIMMERMAN M.D. 03/03/18 Additional Instructions: Stop using marijuana. This may contribute to no vomiting syndrome. Follow-up your doctor in 7 days. Return if worse. JUAN ZIMMERMAN M.D. Mar 03, 2018 23:57
[2018-03-04 00:45] VITALS: BP 132/74
== END 2018-03-04 00:45 | disposition home or self-care (01) ==
LOC: EMR 23:04
DX: R10.84 Generalized abdominal pain (principal); F11.20 Opioid dependence, uncomplicated; G43.A0 Cyclical vomiting, in migraine, not intractable; Z88.8 Allergy status to other drugs, medicaments and biological substances; Z91.048 Other nonmedicinal substance allergy status; F12.10 Cannabis abuse, uncomplicated
CPT/HCPCS: 36415; 80048; 85007; 85025; 99283; J1630; J2550

== ENCOUNTER 2018-12-19 10:05 | Emergency (ER) | payer MEDICAID ==
[~2018-12-19] VITALS: Ht 157.5 cm; Wt 54.4 kg
[2018-12-19 10:07] VITALS: BP 137/94
[2018-12-19] MEDS ORDERED: NKM (10:07)
[2018-12-19] MEDS ORDERED: Isovue-300 100ml vial INJ PRN (10:30)
[2018-12-19] MEDS ORDERED: Clindamycin 600mg 50 ML IVPB ONE (10:30)
[2018-12-19] MEDS ORDERED: Ketorolac 30mg Inj IV ONE (10:30)
[2018-12-19] MEDS ORDERED: LORazepam Inj 2mg/ml 1ml IV ONE (10:30)
[2018-12-19 11:02] LABS: BASOPHILS % (AUTO) 0.7 % (0.0-2.0); EOSINOPHILS % (AUTO) 0.7 % (0.0-3.0); HEMATOCRIT 40.1 % (37.0-47.0); HEMOGLOBIN 13.2 G/DL (12.0-16.0); LYMPHOCYTES % (AUTO) 20.5 % (20.0-45.0); MEAN CORPUSCULAR VOLUME 86 FL (80-99); NEUTROPHILS % (AUTO) 71.1 % (45.0-75.0); PLATELET COUNT 261 K/UL (150-450); RED BLOOD COUNT 4.64 M/UL (4.20-5.40); RED CELL DISTRIBUTION WIDTH 12.6 % (11.6-14.8)
[2018-12-19 11:14] LABS: ANION GAP 11 mmol/L (5-15); BLOOD UREA NITROGEN 8 mg/dL (7-18); CALCIUM 9.2 MG/DL (8.5-10.1); CARBON DIOXIDE 23 MMOL/L (21-32); CHLORIDE 105 MMOL/L (98-107); CREATININE 0.7 MG/DL (0.55-1.30); POTASSIUM 4.1 MMOL/L (3.5-5.1); SODIUM 139 MMOL/L (136-145)
[2018-12-19 11:18] LABS: ALANINE AMINOTRANSFERASE 25 U/L (12-78); ALBUMIN 3.6 G/DL (3.4-5.0); ALKALINE PHOSPHATASE 55 U/L (46-116); ASPARTATE AMINO TRANSFERASE 21 U/L (15-37); BILIRUBIN,TOTAL 0.6 MG/DL (0.2-1.0)
--- NOTE | 2018-12-19 11:28 | Emergency Room Report ---
History of Present Illness General Chief Complaint: Sore Throat Source: Patient Present Illness HPI 28-year-old female with no medical problems presents with severe pain in her sublingual tissues, she also reports to take involving her left maxillary as well as left mandibular molar. She denies fevers, denies pain in her pharyngeal area, and reports she has had this pain for a few days and is gradually worsening Allergies: Coded Allergies: ASCORBIC ACID (Verified Allergy, Unknown, 11/30/18) ORANGE (Unverified Allergy, Unknown, 12/19/18) Uncoded Allergies: VITAMIN C (Allergy, Severe, 01/17/14) Patient History Past Medical History: see triage record Reviewed Nursing Documentation: PMH: Agreed; PSxH: Agreed Nursing Documentation-PMH Past Medical History: No History, Except For Hx Cancer: No Hx Gastrointestinal Problems: No - Kidney stones Hx Dialysis: No - kidney stones Hx Neurological Problems: No Review of Systems All Other Systems: negative except mentioned in HPI Physical Exam Vital Signs Date Time Temp Pulse Resp B/P (MAP) Pulse Ox O2 Delivery O2 Flow Rate FiO2 12/19/18 10:02 98.2 94 18 137/94 100 Room Air Sp02 EP Interpretation: reviewed, normal General Appearance: no apparent distress, alert, non-toxic Head: normocephalic Eyes: bilateral eye normal inspection, bilateral eye PERRL, bilateral eye EOMI ENT: hearing grossly normal, normal pharynx, no angioedema, normal voice, moist mucus membranes, other - +sublingual tenderness, no crepitus Neck: normal inspection, full range of motion, supple, thyroid normal, supple/ symm/no masses Respiratory: chest non-tender, lungs clear, normal breath sounds, chest symmetrical, palpation of chest normal Cardiovascular #1: normal peripheral pulses, regular rate, rhythm Cardiovascular #2: 2+ radial (R), 2+ radial (L) Gastrointestinal: normal inspection, non tender, soft, no mass, no guarding, no rebound Rectal: deferred Genitourinary: normal inspection, no CVA tenderness Musculoskeletal: back normal, gait/station normal, normal range of motion, non- tender, no calf tenderness Neurologic: alert, responsive, health services information specialist III-XII nml as tested, motor strength/tone normal, sensory intact, speech normal Psychiatric: judgement/insight normal, memory normal, mood/affect normal Skin: normal color, no rash, warm/dry, normal turgor Lymphatic: adenopathy - b/l submandibular Medical Decision Making Diagnostic Impression: Primary Impression: Sialadenitis ER Course patient with exquisite pain in her sublingual tissues, but fairly benign exam,, labs, CT scan all normal other than possible sialoadenitis, will discharge with hard sour candies, Keflex Last Vital Signs Date Time Temp Pulse Resp B/P (MAP) Pulse Ox O2 Delivery O2 Flow Rate FiO2 12/19/18 11:03 98.2 12/19/18 10:07 72 18 137/94 100 Room Air Disposition: HOME, SELF-CARE Condition: Stable Referrals: [facility],REFERRING (PCP) STEPHANIE LAZCANO M.D Dec 19, 2018 11:28
[2018-12-19] MEDS ORDERED: IBUPROFEN600 MG ORAL (13:37)
[2018-12-19] MEDS ORDERED: AUGMENTIN 875-1 EAC1 ORAL (13:37)
[2018-12-19 13:53] VITALS: BP 142/79
== END 2018-12-19 13:54 | disposition home or self-care (01) ==
LOC: EDBD 10:05 → EMR 10:15 → CANBEDREQ 12:26 → EMR 13:54
DX: K11.20 Sialoadenitis, unspecified (principal)
CPT/HCPCS: 36415; 70491; 80053; 83605; 84703; 85025; 86710; 87040; 96365; 96375; 99284; J1885; Q9967; S0077

== ENCOUNTER 2019-03-06 18:40 | Emergency (ER) | payer MEDICAID ==
[~2019-03-06] VITALS: Ht 157.5 cm; Wt 56.7 kg
[~2019-03-06 18:40] MED LIST changes: +AUGMENTIN 875-1 EAC1 ORAL
--- NOTE | 2019-03-06 18:48 | NUR ---
ED Nurse Note: Patient brought in by ambulance due to nausea/vomiting/diarrhea since yesterday. patient reports left side of her stomach is hurting and it radiates to her back, sharp, 9/10 pain. patient reports she is coming from home. last thing that she ate yesterday was a bagel. patient reports hx of kidney stones. patient is alert awake x4 ambulatory, breathing unlabored and even.
[2019-03-06] MEDS ORDERED: Ketorolac 30mg Inj IV ONE (19:00)
[2019-03-06] MEDS ORDERED: Morphine Sulfate 4mg/ml Inj (IV USE ONLY) IVP ONE (19:00)
[2019-03-06 19:05] VITALS: BP 138/88
[2019-03-06 19:20] LABS: BASOPHILS % (AUTO) 0.4 % (0.0-2.0); HEMATOCRIT 43.9 % (37.0-47.0); HEMOGLOBIN 14.2 G/DL (12.0-16.0); LYMPHOCYTES % (AUTO) 7.2 % (20.0-45.0); MEAN CORPUSCULAR VOLUME 89 FL (80-99); MONOCYTES % (AUTO) 2.5 % (1.0-10.0); NEUTROPHILS % (AUTO) 89.9 % (45.0-75.0); PLATELET COUNT 285 K/UL (150-450); RED BLOOD COUNT 4.95 M/UL (4.20-5.40); RED CELL DISTRIBUTION WIDTH 11.5 % (11.6-14.8); WHITE BLOOD COUNT 13.6 K/UL (4.8-10.8)
[2019-03-06 19:33] LABS: ANION GAP 10 mmol/L (5-15); BLOOD UREA NITROGEN 8 mg/dL (7-18); CALCIUM 9.9 MG/DL (8.5-10.1); CARBON DIOXIDE 23 MMOL/L (21-32); CHLORIDE 106 MMOL/L (98-107); CREATININE 0.8 MG/DL (0.55-1.30); POTASSIUM 4.1 MMOL/L (3.5-5.1); SODIUM 139 MMOL/L (136-145)
--- NOTE | 2019-03-06 20:18 | Emergency Room Report ---
History of Present Illness General Chief Complaint: Abdominal Pain Source: Medical Record Present Illness HPI 29-year-old female presents to the emergency department complaining of 8 out of 10 severity left-sided flank pain with some radiation towards the left lower quadrant of the abdomen x2 days. Patient reports that initially she just had pain in the flank area today she began having the radiation. Patient reports nausea and vomiting she denies blood in the vomit she denies constipation or diarrhea she denies blood in the stool or black tarry stools. She denies suspicion of and states that she has not been sexually active over 6 months. She denies fevers or chills. She denies hematuria, dysuria or urinary frequency. She reports history of renal calculi in the past. Patient states that she has been taking Tylenol without any relief. She describes sharp stabbing pains which come and go. Allergies: Coded Allergies: ASCORBIC ACID (Verified Allergy, Unknown, 11/30/18) ORANGE (Unverified Allergy, Unknown, 12/19/18) Uncoded Allergies: VITAMIN C (Allergy, Severe, 01/17/14) Patient History Past Medical History: see triage record Past Surgical History: none Pertinent Family History: none Last Menstrual Period: on period Now: No Reviewed Nursing Documentation: PMH: Agreed; PSxH: Agreed Nursing Documentation-PMH Past Medical History: No History, Except For Hx Cancer: No Hx Gastrointestinal Problems: No Hx Dialysis: No Hx Neurological Problems: No Review of Systems All Other Systems: negative except mentioned in HPI Physical Exam Vital Signs Date Time Temp Pulse Resp B/P (MAP) Pulse Ox O2 Delivery O2 Flow Rate FiO2 03/06/19 18:40 98.8 64 18 138/88 (105) 97 Room Air Sp02 EP Interpretation: reviewed, normal General Appearance: alert, GCS 15, non-toxic, moderate distress Head: normocephalic, atraumatic Eyes: bilateral eye normal inspection, bilateral eye PERRL ENT: hearing grossly normal, normal voice Neck: full range of motion Respiratory: chest non-tender, lungs clear, normal breath sounds, speaking full sentences Cardiovascular #1: regular rate, rhythm Gastrointestinal: normal bowel sounds, non tender, soft, non-distended, no guarding, tenderness - LLQ TTP Rectal: deferred Genitourinary: normal inspection, CVA tenderness (L) Musculoskeletal: back normal, gait/station normal, normal range of motion, non- tender Neurologic: alert, oriented x3, responsive, motor strength/tone normal, sensory intact, speech normal, grossly normal Psychiatric: judgement/insight normal Lymphatic: no adenopathy Medical Decision Making PA Attestation Dr. Zamora Is my supervising Physician whom patient management has been discussed with. Diagnostic Impression: Primary Impression: Renal colic on left side Additional Impressions: Ovarian cyst Qualified Codes: N83.202 - Unspecified ovarian cyst, left side Kidney, medullary sponge ER Course 29-year-old female presents to the emergency department complaining of 8 out of 10 severity left-sided flank pain with some radiation towards the left lower quadrant of the abdomen x2 days. Patient reports that initially she just had pain in the flank area today she began having the radiation. Patient reports nausea and vomiting she denies blood in the vomit she denies constipation or diarrhea she denies blood in the stool or black tarry stools. She denies suspicion of and states that she has not been sexually active over 6 months. She denies fevers or chills. She denies hematuria, dysuria or urinary frequency. She reports history of renal calculi in the past. Patient states that she has been taking Tylenol without any relief. She describes sharp stabbing pains which come and go. Ddx considered but are not limited to Diverticulitis, acute appy, diarrhea,UC, PUD, GE, pancreatitis, gallstone, kidney stone, pyelonephritis, UTI, obstruction. Vital signs: are WNL, pt. is afebrile H&PE are most consistent with Possible Renal Calculi ORDERS: -CBC: WBC's 13.6 -BMP: Unremarkable - UA -Urine Hcg: - CT abdomen and pelvis no contrast: ED INTERVENTIONS: -- 1000NS --4mg Morphine for pain - 15mg Toradol IV DISCHARGE: At this time pt. is stable for d/c to home. Will provide printed patient care instructions, and any necessary prescriptions. Care plan and follow up instructions have been discussed with the patient prior to discharge. Labs Test 03/06/19 19:03 03/06/19 20:15 White Blood Count 13.6 K/UL (4.8-10.8) Red Blood Count 4.95 M/UL (4.20-5.40) Hemoglobin 14.2 G/DL (12.0-16.0) Hematocrit 43.9 % (37.0-47.0) Mean Corpuscular Volume 89 FL (80-99) Mean Corpuscular Hemoglobin 28.6 PG (27.0-31.0) Mean Corpuscular Hemoglobin Concent 32.3 G/DL (32.0-36.0) Red Cell Distribution Width 11.5 % (11.6-14.8) Platelet Count 285 K/UL (150-450) Mean Platelet Volume 5.3 FL (6.5-10.1) Neutrophils (%) (Auto) 89.9 % (45.0-75.0) Lymphocytes (%) (Auto) 7.2 % (20.0-45.0) Monocytes (%) (Auto) 2.5 % (1.0-10.0) Eosinophils (%) (Auto) 0.0 % (0.0-3.0) Basophils (%) (Auto) 0.4 % (0.0-2.0) Sodium Level 139 MMOL/L (136-145) Potassium Level 4.1 MMOL/L (3.5-5.1) Chloride Level 106 MMOL/L (98-107) Carbon Dioxide Level 23 MMOL/L (21-32) Anion Gap 10 mmol/L (5-15) Blood Urea Nitrogen 8 mg/dL (7-18) Creatinine 0.8 MG/DL (0.55-1.30) Estimat Glomerular Filtration Rate > 60 mL/min (>60) Glucose Level 125 MG/DL (74-106) Calcium Level 9.9 MG/DL (8.5-10.1) Urine Color Yellow Urine Appearance Clear Urine pH 6.5 (4.5-8.0) Urine Specific [place] 1.015 (1.005-1.035) Urine Protein 2+ (NEGATIVE) Urine Glucose (UA) Negative (NEGATIVE) Urine Ketones 1+ (NEGATIVE) Urine Blood 2+ (NEGATIVE) Urine Nitrite Negative (NEGATIVE) Urine Bilirubin Negative (NEGATIVE) Urine Urobilinogen Normal MG/DL (0.0-1.0) Urine Leukocyte Esterase 1+ (NEGATIVE) Urine RBC 2-4 /HPF (0 - 2) Urine WBC 2-4 /HPF (0 - 2) Urine Squamous Epithelial Cells Occasional /LPF Urine Bacteria Few /HPF (NONE) Urine Mucus Many /LPF (NONE/OCC) Urine HCG, Qualitative Negative (NEGATIVE) CT/MRI/US Diagnostic Results CT/MRI/US Diagnostic Results : Imaging Test Ordered: CT Abdomen and Pelvis No Contrast Last Vital Signs Date Time Temp Pulse Resp B/P (MAP) Pulse Ox O2 Delivery O2 Flow Rate FiO2 03/06/19 19:05 98.8 78 18 138/88 97 Room Air Disposition: HOME, SELF-CARE Condition: Stable Departure Forms: Return to Work Return to Work Date: Mar 09, 2019 Work Restrictions: None Other Restrictions: May return Sooner if Symptoms have resolved. Return to Full Activity: Mar 10, 2019 Patient Instructions: Renal Colic, [id number] Additional Instructions: Take medications as directed. Follow up with a Primary Care Provider in 3-5 days For a referral to have UROLOGIST Evaluation, even if your symptoms have resolved. Return sooner to ED if new symptoms occur, or current symptoms become worse. - Please note that this Emergency Department Report was dictated using [employer] tech technology software, occasionally this can lead to erroneous entry secondary to interpretation by the dictation equipment. Radha Weber Mar 06, 2019 20:18
--- NOTE | 2019-03-06 20:43 | NUR ---
ED Nurse Note: PT IN BED, MOANING AND RESTLESS. pT REPORTS PAIN IS 8/10 DOWN FROM 10/10. iV INFUSING PER ORDER. AWAITING CT RESULTS. WILL CONTINUE TO MONITOR
[2019-03-06 20:48] LABS: APPEARANCE,URINE CLEAR; BILIRUBIN, URINE NEGATIVE (NEGATIVE); GLUCOSE, URINE (UA) NEGATIVE (NEGATIVE); KETONES,URINE 1+ (NEGATIVE); LEUKOCYTE ESTERASE ,URINE 1+ (NEGATIVE); NITRITE,URINE NEGATIVE (NEGATIVE); PH,URINE 6.5 (4.5-8.0); PROTEIN,URINE 2+ (NEGATIVE); UROBILINOGEN,URINE NORMAL MG/DL (0.0-1.0)
[2019-03-06 20:51] LABS: COLOR,URINE YELLOW
[2019-03-06] MEDS ORDERED: NORCO 5-325 TA1 EACH ORAL (21:27)
[2019-03-06] MEDS ORDERED: Haloperidol Lactate 5 MG in D5W 55 ML IVPB ONE (21:30)
[2019-03-06] MEDS ORDERED: HYDROcodone/Acetamin 5/325 tab ORAL ONE (21:30)
[2019-03-06 22:05] VITALS: BP 138/88
--- NOTE | 2019-03-06 22:05 | NUR ---
ER DISCHARGE NOTE: Patient is cleared to be discharged per ERMD, pt is aox4, on room air, with stable vital signs. pt was given dc and prescription instructions, pt was able to verbalize understanding, pt id band and iv site removed without complications. pt is able to ambulate with steady gait. pt took all belongings.
--- NOTE | 2019-03-07 10:01 | Diagnostic Imaging Report ---
Indication: Left flank pain Technique: Continuous helical transaxial imaging of the abdomen and pelvis was obtained from the lung bases to the pubic symphysis. No intravenous contrast was administered. Coronal 2-D reformats were also obtained. Automatic Exposure Control was utilized. Total Dose length Product (DLP): 555.[address] Dose Index Volume (CTDIvol): 11.19 mGy Comparison: 05/30/2017 CT Findings: There is a nonobstructive stone in the lower pole the left kidney measuring 6 mm. There is no hydronephrosis. There is increased density of the renal medulla bilaterally which may be due to nephrocalcinosis. Evaluation of solid organs limited on noncontrast imaging. There is suggestion of gallbladder sludge versus stones. Bowel gas pattern is nonobstructive. There is no free fluid. There is suggestion of a left ovarian cyst which may be better evaluated with ultrasound measuring about 1.7 cm. Uterus noted. Previous examination had demonstrated abscess in the right medial gluteal fold. This has resolved in the interval. IMPRESSION: Nonobstructive stone in the lower pole the left kidney. This was present on the prior study as well. 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 Gallbladder sludge versus stones Suggestion of a left ovarian cyst not well evaluated on the current examination is obtained. Consider ultrasound to evaluate this. [facility] has communicated the preliminary results to the Emergency Department. Their findings are largely concordant with this report. The CT scanner at [facility] is accredited by the [employer] and the scans are performed using dose optimization techniques as appropriate to a performed exam including Automatic Exposure control.
== END 2019-03-06 22:05 | disposition home or self-care (01) ==
LOC: EDBD 18:40 → EMR 19:01
DX: N20.0 Calculus of kidney (principal); N83.202 Unspecified ovarian cyst, left side; Q61.5 Medullary cystic kidney
CPT/HCPCS: 36415; 74176; 80048; 81003; 81025; 85025; 96361; 96374; 96375; 99284; J1630; J1885; J2270; J2405

== ENCOUNTER 2019-03-24 08:03 | Emergency (ER) | payer MEDICAID ==
[~2019-03-24] VITALS: Ht 157.5 cm; Wt 61.2 kg
--- NOTE | 2019-03-24 08:12 | Emergency Room Report ---
History of Present Illness General Chief Complaint: Vomiting Source: Patient Present Illness HPI Patient is a 29-year-old female presents after increased left lower abdominal pain and vomiting. Patient reports having increased nausea and vomiting. She reports having some watery diarrhea as well as multiple episodes of emesis. She is reports smoking marijuana daily and states she smokes 4 marijuana cigarettes a day. She denies prior episodes of hyperemesis related to marijuana. She reports having some increased abdominal discomfort. She reports feeling fever. She states she may have had some prior history of ovarian cyst but is unsure of this. Pain at onset last night. She reports also having some watery diarrhea without any definite blood. Allergies: Coded Allergies: ASCORBIC ACID (Verified Allergy, Unknown, 11/30/18) ORANGE (Unverified Allergy, Unknown, 12/19/18) Uncoded Allergies: VITAMIN C (Allergy, Severe, 01/17/14) Patient History Past Medical History: see triage record Last Menstrual Period: 01/26/19 Reviewed Nursing Documentation: PMH: Agreed; PSxH: Agreed Nursing Documentation-PMH Past Medical History: No Stated History Hx Cancer: No Hx Gastrointestinal Problems: No Hx Dialysis: No Hx Neurological Problems: No Review of Systems All Other Systems: negative except mentioned in HPI Physical Exam Vital Signs Date Time Temp Pulse Resp B/P (MAP) Pulse Ox O2 Delivery O2 Flow Rate FiO2 03/24/19 08:03 98.1 60 18 151/90 (110) 100 Room Air General Appearance: well appearing, no apparent distress, alert, GCS 15, non- toxic ENT: normal pharynx Neck: full range of motion Respiratory: chest non-tender, lungs clear Cardiovascular #1: normal inspection Gastrointestinal: tenderness - mild diffuse tenderness, no guarding Genitourinary: no CVA tenderness Musculoskeletal: normal inspection Neurologic: normal inspection, alert, oriented x3, responsive, leather toggler III-XII nml as tested Psychiatric: anxious Skin: no rash Medical Decision Making Diagnostic Impression: Primary Impression: Abdominal pain Additional Impressions: UTI Cocaine abuse Cyclical vomiting ER Course Patient is a 21-year-old female presented after increased epigastric pain and vomiting. Differential diagnosis include was not limited to gastritis, ulcer, marijuana-induced hyperemesis among others. Because of complexity of patient's case laboratory testing and imaging studies were ordered. Patient was noted to have some evidence of urinary infection. Patient was given IV acid blockers as well as medications for symptomatic treatment. She did not show any evidence of peritonitis. A urine drug screen was positive for marijuana as well as cocaine. patient was given IV Haldol due to hyperemesis. Patient was noted to have market improvement was able to tolerate oral fluids. Patient was advised not to use drugs. Patient was advised to follow up with primary care physician. Patient to return if worse or any concerns. Labs Test 03/24/19 08:11 03/24/19 10:10 White Blood Count 13.0 K/UL (4.8-10.8) Red Blood Count 4.95 M/UL (4.20-5.40) Hemoglobin 14.3 G/DL (12.0-16.0) Hematocrit 43.8 % (37.0-47.0) Mean Corpuscular Volume 88 FL (80-99) Mean Corpuscular Hemoglobin 28.8 PG (27.0-31.0) Mean Corpuscular Hemoglobin Concent 32.6 G/DL (32.0-36.0) Red Cell Distribution Width 12.4 % (11.6-14.8) Platelet Count 317 K/UL (150-450) Mean Platelet Volume 5.4 FL (6.5-10.1) Neutrophils (%) (Auto) % (45.0-75.0) Lymphocytes (%) (Auto) % (20.0-45.0) Monocytes (%) (Auto) % (1.0-10.0) Eosinophils (%) (Auto) % (0.0-3.0) Basophils (%) (Auto) % (0.0-2.0) Differential Total Cells Counted 100 Neutrophils % (Manual) 87 % (45-75) Lymphocytes % (Manual) 10 % (20-45) Monocytes % (Manual) 3 % (1-10) Eosinophils % (Manual) 0 % (0-3) Basophils % (Manual) 0 % (0-2) Band Neutrophils 0 % (0-8) Platelet Estimate Adequate Platelet Morphology Normal Red Blood Cell Morphology Normal Prothrombin Time 10.6 SEC (9.30-11.50) Prothromb Time International Ratio 1.0 (0.9-1.1) Activated Partial Thromboplast Time 27 SEC (23-33) Sodium Level 140 MMOL/L (136-145) Potassium Level 3.8 MMOL/L (3.5-5.1) Chloride Level 104 MMOL/L (98-107) Carbon Dioxide Level 22 MMOL/L (21-32) Anion Gap 14 mmol/L (5-15) Blood Urea Nitrogen 11 mg/dL (7-18) Creatinine 0.7 MG/DL (0.55-1.30) Estimat Glomerular Filtration Rate > 60 mL/min (>60) Glucose Level 121 MG/DL (74-106) Calcium Level 9.8 MG/DL (8.5-10.1) Total Bilirubin 0.6 MG/DL (0.2-1.0) Aspartate Amino Transf (AST/SGOT) 34 U/L (15-37) Alanine Aminotransferase (ALT/SGPT) 76 U/L (12-78) Alkaline Phosphatase 63 U/L (46-116) Troponin I 0.000 ng/mL (0.000-0.056) Total Protein 8.0 G/DL (6.4-8.2) Albumin 4.4 G/DL (3.4-5.0) Globulin 3.6 g/dL Albumin/Globulin Ratio 1.2 (1.0-2.7) Urine Color Yellow Urine Appearance Slightly cloudy Urine pH 6 (4.5-8.0) Urine Specific [place] 1.025 (1.005-1.035) Urine Protein 2+ (NEGATIVE) Urine Glucose (UA) Negative (NEGATIVE) Urine Ketones 4+ (NEGATIVE) Urine Blood 4+ (NEGATIVE) Urine Nitrite Negative (NEGATIVE) Urine Bilirubin Negative (NEGATIVE) Urine Urobilinogen Normal MG/DL (0.0-1.0) Urine Leukocyte Esterase 1+ (NEGATIVE) Urine RBC 5-10 /HPF (0 - 2) Urine WBC 5-10 /HPF (0 - 2) Urine Squamous Epithelial Cells Many /LPF (NONE/OCC) Urine Bacteria Few /HPF (NONE) Urine HCG, Qualitative Negative (NEGATIVE) Urine Opiates Screen Negative (NEGATIVE) Urine Barbiturates Screen Negative (NEGATIVE) Phencyclidine (PCP) Screen Negative (NEGATIVE) Urine Amphetamines Screen Negative (NEGATIVE) Urine Benzodiazepines Screen Negative (NEGATIVE) Urine Cocaine Screen Positive (NEGATIVE) Urine Marijuana (THC) Screen Positive (NEGATIVE) Last Vital Signs Date Time Temp Pulse Resp B/P (MAP) Pulse Ox O2 Delivery O2 Flow Rate FiO2 7/29/19 08:03 98.1 60 18 151/90 110 100 Room Air Status: improved Disposition: HOME, SELF-CARE Condition: Stable Scripts Cephalexin* (KEFLEX*) 500 Mg Capsule 500 MG ORAL EVERY 6 HOURS, #28 CAP Prov: Husam Shannon MD 03/24/19 Husam Shannon MD Mar 24, 2019 08:12
[2019-03-24] MEDS ORDERED: Haloperidol Lactate 5 MG in D5W 55 ML IVPB ONE (08:15)
[2019-03-24 08:20] VITALS: BP 151/90
--- NOTE | 2019-03-24 08:20 | NUR ---
ED Nurse Note: pt was brought in by ambulance c/o vomiting started 2 days ago, pt stated she was seen in the ed with same reason 2 weeks ago, pt is seen by ermd. will continue to monitor.
[2019-03-24 08:22] LABS: HEMATOCRIT 43.8 % (37.0-47.0); HEMOGLOBIN 14.3 G/DL (12.0-16.0); MEAN CORPUSCULAR VOLUME 88 FL (80-99); PLATELET COUNT 317 K/UL (150-450); RED BLOOD COUNT 4.95 M/UL (4.20-5.40); RED CELL DISTRIBUTION WIDTH 12.4 % (11.6-14.8)
--- NOTE | 2019-03-24 08:30 | NUR ---
ED Nurse Note: pt medicated as ordered. pt unable to give urine sample as of the moment. iv stablished on the left ac. will continue to monitor.
[2019-03-24 08:38] LABS: ANION GAP 14 mmol/L (5-15); BLOOD UREA NITROGEN 11 mg/dL (7-18); CALCIUM 9.8 MG/DL (8.5-10.1); CARBON DIOXIDE 22 MMOL/L (21-32); CHLORIDE 104 MMOL/L (98-107); CREATININE 0.7 MG/DL (0.55-1.30); POTASSIUM 3.8 MMOL/L (3.5-5.1); SODIUM 140 MMOL/L (136-145)
[2019-03-24 08:42] LABS: ALANINE AMINOTRANSFERASE 76 U/L (12-78); ALBUMIN 4.4 G/DL (3.4-5.0); ALBUMIN/GLOBULIN RATIO 1.2 (1.0-2.7); ALKALINE PHOSPHATASE 63 U/L (46-116); ASPARTATE AMINO TRANSFERASE 34 U/L (15-37); BILIRUBIN,TOTAL 0.6 MG/DL (0.2-1.0)
[2019-03-24 10:17] LABS: APPEARANCE,URINE SLIGHTLY CLOUDY; BILIRUBIN, URINE NEGATIVE (NEGATIVE); COLOR,URINE YELLOW; GLUCOSE, URINE (UA) NEGATIVE (NEGATIVE); KETONES,URINE 4+ (NEGATIVE); LEUKOCYTE ESTERASE ,URINE 1+ (NEGATIVE); NITRITE,URINE NEGATIVE (NEGATIVE); PH,URINE 6 (4.5-8.0); PROTEIN,URINE 2+ (NEGATIVE); UROBILINOGEN,URINE NORMAL MG/DL (0.0-1.0)
[2019-03-24] MEDS ORDERED: cefTRIAXone 1 GM in NS 55 ML IVPB ONE (11:00)
[2019-03-24] MEDS ORDERED: CEPHALEXIN500 MG ORAL (13:28)
--- NOTE | 2019-03-24 13:55 | NUR ---
ED Nurse Note: pt complaints of headache, pt chela billy aware, po tylenol given and pt able to tolerate well.
[2019-03-24 14:00] VITALS: BP 125/75
== END 2019-03-24 14:00 | disposition home or self-care (01) ==
LOC: EDBD 08:03 → EMR 08:31
DX: N39.0 Urinary tract infection, site not specified (principal); G43.A0 Cyclical vomiting, in migraine, not intractable; R10.32 Left lower quadrant pain; F14.10 Cocaine abuse, uncomplicated; Z91.048 Other nonmedicinal substance allergy status; Z91.018 Allergy to other foods; F12.10 Cannabis abuse, uncomplicated
CPT/HCPCS: 36415; 80053; 80307; 81001; 81025; 84484; 85007; 85025; 85610; 85730; 96365; 96375; 99284; J0696; J1630; S0028

== ENCOUNTER 2019-05-18 17:58 | Emergency (ER) | payer MEDICAID ==
[~2019-05-18] VITALS: Ht 157.5 cm; Wt 57.6 kg
[2019-05-18 18:05] VITALS: BP 114/74
--- NOTE | 2019-05-18 18:08 | NUR ---
ED Nurse Note: pt brought in to ER by ambulance from home due to RLQ pain 8/10 and no urinating for 3 days. pt aao x4 and crying for pain but cooperative. skin clean and intact and old scars present. no acute distress noted. no vomiting at this moment. pt is in gown and on [employer].
[2019-05-18] MEDS ORDERED: Mylanta II UD 30ml ORAL ONE (18:30)
[2019-05-18] MEDS ORDERED: Dicyclomine HCl 10mg/5ml oral soln ORAL ONE (18:30)
[2019-05-18] MEDS ORDERED: Lidocaine 2% Visc 15ml soln ORAL ONE (18:30)
--- NOTE | 2019-05-18 18:33 | NUR ---
ED Nurse Note: pt reported difficulty to urinate. ERMD made aware. per ERMD no catheter at this time.
[2019-05-18 19:00] LABS: BASOPHILS % (AUTO) 0.5 % (0.0-2.0); EOSINOPHILS % (AUTO) 0.3 % (0.0-3.0); HEMATOCRIT 42.2 % (37.0-47.0); HEMOGLOBIN 14.1 G/DL (12.0-16.0); LYMPHOCYTES % (AUTO) 20.3 % (20.0-45.0); MEAN CORPUSCULAR VOLUME 86 FL (80-99); MONOCYTES % (AUTO) 6.8 % (1.0-10.0); NEUTROPHILS % (AUTO) 72.2 % (45.0-75.0); PLATELET COUNT 296 K/UL (150-450); RED CELL DISTRIBUTION WIDTH 11.7 % (11.6-14.8); WHITE BLOOD COUNT 11.5 K/UL (4.8-10.8)
--- NOTE | 2019-05-18 19:04 | NUR ---
HAND-OFF: Report given to CEZAR Amezcua. urine needs to be collected.
[2019-05-18 19:16] LABS: ANION GAP 12 mmol/L (5-15); BLOOD UREA NITROGEN 6 mg/dL (7-18); CALCIUM 9.6 MG/DL (8.5-10.1); CARBON DIOXIDE 23 MMOL/L (21-32); CHLORIDE 102 MMOL/L (98-107); CREATININE 0.7 MG/DL (0.55-1.30); POTASSIUM 3.5 MMOL/L (3.5-5.1); SODIUM 136 MMOL/L (136-145)
[2019-05-18 19:20] LABS: ALANINE AMINOTRANSFERASE 26 U/L (12-78); ALBUMIN 3.9 G/DL (3.4-5.0); ALBUMIN/GLOBULIN RATIO 1.1 (1.0-2.7); ALKALINE PHOSPHATASE 49 U/L (46-116); ASPARTATE AMINO TRANSFERASE 17 U/L (15-37); BILIRUBIN,TOTAL 0.8 MG/DL (0.2-1.0)
[2019-05-18 19:56] VITALS: BP 132/76
--- NOTE | 2019-05-18 19:56 | NUR ---
ER Nurse Note: Pt woke up, screaming of pain. Pt ambualted with assist to restroom and received urine sample. Pt expresssing pain- crying, moaning. Will ask for pain meds. Pt stable. Will continue to [facility].
[2019-05-18 20:15] LABS: APPEARANCE,URINE CLEAR; BILIRUBIN, URINE NEGATIVE (NEGATIVE); COLOR,URINE PALE YELLOW; GLUCOSE, URINE (UA) NEGATIVE (NEGATIVE); KETONES,URINE NEGATIVE (NEGATIVE); LEUKOCYTE ESTERASE ,URINE 1+ (NEGATIVE); NITRITE,URINE NEGATIVE (NEGATIVE); PH,URINE 7 (4.5-8.0); PROTEIN,URINE NEGATIVE (NEGATIVE); UROBILINOGEN,URINE NORMAL MG/DL (0.0-1.0)
[2019-05-18] MEDS ORDERED: Omnipaque-300 100ml vial INJ PRN (20:30)
[2019-05-18] MEDS ORDERED: Simethicone 80mg tab ORAL ONE (21:15)
--- NOTE | 2019-05-18 21:16 | Diagnostic Imaging Report ---
Indication: Abdominal pain Technique: Continuous helical transaxial imaging of the abdomen and pelvis was obtained from the lung bases to the pubic symphysis during intravenous contrast administration. Coronal 2-D reformats were also obtained. Study obtained in a Siemens sensation [address] Automatic Exposure Control was utilized. Total Dose length Product (DLP): 618.[address] Dose Index Volume (CTDIvol): 12.33 mGy Comparison: 05/30/2017 Findings: The lung bases are clear there is a nonobstructing 5 mm stone demonstrated in the lower pole left kidney. There is no hydronephrosis. The liver and spleen, gallbladder and pancreas appear unremarkable. Bowel gas pattern is nonobstructive. There is a small amount of free fluid in the pelvis. Bladder is unremarkable. Uterus is unremarkable. IMPRESSION: No change from the last study. No acute findings. Nonobstructive stone in the left kidney again noted. [facility] has communicated the preliminary results to the Emergency Department. Their findings are largely concordant with this report. The CT scanner at [facility] is accredited by the [employer] and the scans are performed using dose optimization techniques as appropriate to a performed exam including Automatic Exposure control.
[2019-05-18] MEDS ORDERED: ANTI-DIARRHEAL2 MG PO ×3 (21:52→22:05)
[2019-05-18] MEDS ORDERED: ZOFRAN4 MG ORAL ×3 (21:52→22:05)
[2019-05-18] MEDS ORDERED: DICYCLOMINE HCL20 M1 PO ×3 (21:52→22:05)
[2019-05-18 22:15] VITALS: BP 128/74
--- NOTE | 2019-05-18 22:15 | NUR ---
ER Nurse Note: Pt seen, treated, medically cleared for discharge by ER MD. Discharge instuctions and prescriptions given with repeat verbalization by pt. Emphasized to follow up with primay care provider. All orders completed per ERMD orders. Pt a&ox4, VSS, no signs of distress. ID band removed. IV discontinued; site clean and bandaged. All questions answered per pt's questions. Pt left with all belongings, left with own transportation.
--- NOTE | 2019-05-18 22:48 | NUR ---
Note undone in EDM - 05/18/19 at 2250 by [email or web address] ER Nurse Note: Pt seen, treated, medically cleared for discharge by ER MD. Discharge instuctions and prescriptions given with repeat verbalization by pt. Emphasized to follow up with primay care provider. All orders completed per ERMD orders. Pt a&ox4, VSS, no signs of distress. ID band removed. IV discontinued; site clean and bandaged. All questions answered per pt's questions. Pt left with all belongings, left with own transportation.
--- NOTE | 2019-05-19 11:46 | Emergency Room Report ---
History of Present Illness General Chief Complaint: Abdominal Pain Source: Patient, Medical Record, EMS Present Illness HPI Patient is a 29-year-old female presents after increased abdominal pain. Patient reports increased epigastric pain associated with nausea and vomiting. She reports having watery diarrhea. She denies any hematemesis or bloody stools. She states that she has been having increased abdominal cramping which is intermittent in nature. She denies being . She had not been feeling dizzy or lightheaded. She had multiple episodes of vomiting. She states that similar symptoms in the past. She denies any definite bad food exposure. She denies recent travel or antibiotic use. Allergies: Coded Allergies: ASCORBIC ACID (Verified Allergy, Unknown, 11/30/18) ORANGE (Unverified Allergy, Unknown, 12/19/18) Uncoded Allergies: VITAMIN C (Allergy, Severe, 01/17/14) Patient History Past Medical History: see triage record Last Menstrual Period: 2 weeks ago Reviewed Nursing Documentation: PMH: Agreed; PSxH: Agreed Nursing Documentation-PMH Past Medical History: No History, Except For Hx Hypertension: No Hx Pacemaker: No Hx Asthma: No Hx COPD: No Hx Diabetes: No Hx Cancer: No Hx Gastrointestinal Problems: Yes Hx Dialysis: No History Of Psychiatric Problem: No Hx Neurological Problems: No Hx Cerebrovascular Accident: No Hx Seizures: No Review of Systems All Other Systems: negative except mentioned in HPI Physical Exam Vital Signs Date Time Temp Pulse Resp B/P (MAP) Pulse Ox O2 Delivery O2 Flow Rate FiO2 05/18/19 18:03 98.4 66 16 114/74 (87) 95 Room Air Sp02 EP Interpretation: reviewed, normal General Appearance: normal inspection, well appearing, no apparent distress, alert, GCS 15 Head: atraumatic ENT: normal ENT inspection, hearing grossly normal, normal voice Neck: normal inspection, full range of motion, supple, no bony tend Respiratory: normal inspection, lungs clear, normal breath sounds, no respiratory distress, no retraction, no wheezing Cardiovascular #1: regular rate, rhythm, no edema Gastrointestinal: soft, no guarding, no hernia, tenderness - Mild diffuse upper tenderness Genitourinary: no CVA tenderness Musculoskeletal: normal inspection, back normal, normal range of motion Neurologic: normal inspection, alert, oriented x3, responsive, speech normal Psychiatric: normal inspection, judgement/insight normal, mood/affect normal Medical Decision Making Diagnostic Impression: Primary Impression: Gastroenteritis ER Course Patient presented for abdominal pain. Differential diagnoses included ischemic bowel, appendicitis, perforated viscus, abdominal aortic aneurysm, inferior myocardial infarction, viral gastroenteritis among others.Because patient's complexity imaging studies, and laboratory testing were ordered. Laboratory testing showed no evidence of significant dehydration. Lipase was normal White blood count was minimally elevated CT of the abdomen pelvis showed: Nonobstructing renal stones as well as no evidence of acute appendicitis. Patient given prescription for medications for symptomatic treatment of vomiting and diarrhea. The patient is advised to follow up with primary care doctor in 1-2 days. Patient is advised to return if any worsening condition or if any changes in status that are concerning. This report is dictated with [employer] software which may occasionally lead to discrepancies related to use of this software. Patient appears to be stable for close outpatient follow up. Labs Test 05/18/19 18:35 05/18/19 20:00 White Blood Count 11.5 K/UL (4.8-10.8) Red Blood Count 4.90 M/UL (4.20-5.40) Hemoglobin 14.1 G/DL (12.0-16.0) Hematocrit 42.2 % (37.0-47.0) Mean Corpuscular Volume 86 FL (80-99) Mean Corpuscular Hemoglobin 28.8 PG (27.0-31.0) Mean Corpuscular Hemoglobin Concent 33.4 G/DL (32.0-36.0) Red Cell Distribution Width 11.7 % (11.6-14.8) Platelet Count 296 K/UL (150-450) Mean Platelet Volume 5.3 FL (6.5-10.1) Neutrophils (%) (Auto) 72.2 % (45.0-75.0) Lymphocytes (%) (Auto) 20.3 % (20.0-45.0) Monocytes (%) (Auto) 6.8 % (1.0-10.0) Eosinophils (%) (Auto) 0.3 % (0.0-3.0) Basophils (%) (Auto) 0.5 % (0.0-2.0) Sodium Level 136 MMOL/L (136-145) Potassium Level 3.5 MMOL/L (3.5-5.1) Chloride Level 102 MMOL/L (98-107) Carbon Dioxide Level 23 MMOL/L (21-32) Anion Gap 12 mmol/L (5-15) Blood Urea Nitrogen 6 mg/dL (7-18) Creatinine 0.7 MG/DL (0.55-1.30) Estimat Glomerular Filtration Rate > 60 mL/min (>60) Glucose Level 101 MG/DL (74-106) Calcium Level 9.6 MG/DL (8.5-10.1) Total Bilirubin 0.8 MG/DL (0.2-1.0) Aspartate Amino Transf (AST/SGOT) 17 U/L (15-37) Alanine Aminotransferase (ALT/SGPT) 26 U/L (12-78) Alkaline Phosphatase 49 U/L (46-116) Total Protein 7.3 G/DL (6.4-8.2) Albumin 3.9 G/DL (3.4-5.0) Globulin 3.4 g/dL Albumin/Globulin Ratio 1.1 (1.0-2.7) Lipase 94 U/L (73-393) Urine Color Pale yellow Urine Appearance Clear Urine pH 7 (4.5-8.0) Urine Specific [place] 1.005 (1.005-1.035) Urine Protein Negative (NEGATIVE) Urine Glucose (UA) Negative (NEGATIVE) Urine Ketones Negative (NEGATIVE) Urine Blood 3+ (NEGATIVE) Urine Nitrite Negative (NEGATIVE) Urine Bilirubin Negative (NEGATIVE) Urine Urobilinogen Normal MG/DL (0.0-1.0) Urine Leukocyte Esterase 1+ (NEGATIVE) Urine RBC 5-10 /HPF (0 - 2) Urine WBC 2-4 /HPF (0 - 2) Urine Squamous Epithelial Cells Few /LPF (NONE/OCC) Urine Bacteria Few /HPF (NONE) Urine HCG, Qualitative Negative (NEGATIVE) Last Vital Signs Date Time Temp Pulse Resp B/P (MAP) Pulse Ox O2 Delivery O2 Flow Rate FiO2 05/18/19 22:15 98.4 90 16 128/74 99 Room Air Status: improved Disposition: HOME, SELF-CARE Condition: Stable Scripts Loperamide Hcl (ANTI-DIARRHEAL) 2 Mg Capsule 2 MG PO EVERY 12 HOURS, #14 CAP Prov: Husam Shannon MD 05/18/19 Dicyclomine Hcl (DICYCLOMINE HCL) 20 Mg Tablet 20 MG PO EVERY 6 HOURS for crampin, #30 TAB Prov: Husam Shannon MD 05/18/19 Ondansetron (Zofran) 4 Mg Tablet 4 MG ORAL Q6H PRN for Nausea & Vomiting, #30 TAB 0 Refills Prov: Husam Shannon MD 05/18/19 Patient Instructions: Abdominal Pain, Adult Husam Shannon MD May 19, 2019 11:46
== END 2019-05-18 22:15 | disposition home or self-care (01) ==
LOC: EDBD 17:58 → EMR 21:24
DX: K52.9 Noninfective gastroenteritis and colitis, unspecified (principal); Z91.018 Allergy to other foods
CPT/HCPCS: 36415; 74177; 80053; 81003; 81025; 83690; 85025; 96374; 96375; J2405; Q9967; S0028; Z7502; 99284

== ENCOUNTER 2020-01-06 09:49 | Emergency (ER) | payer MEDICAID, OTHER ==
[~2020-01-06] VITALS: Ht 157.5 cm; Wt 59.0 kg
[~2020-01-06 09:49] MED LIST changes: +ANTI-DIARRHEAL2 MG PO; +DICYCLOMINE HCL20 M1 PO
--- NOTE | 2020-01-06 10:20 | NUR ---
ED Nurse Note: Pt was brought in by ambulance from home d/t LT lower abdominal pain x 2 days. Pt also complains of nausea and vomiting; denies diarrhea. 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 Pt is AOx4, calm and cooperative. VSS, on RA, afebrile on triage. Placed on bed and gown; will continue to monitor.
[2020-01-06] MEDS ORDERED: Morphine Sulfate 4mg/ml Inj (IV USE ONLY) IVP ONE ×2 (10:30→13:45)
[2020-01-06] MEDS ORDERED: DiphenhydrAMINE 50mg/ml Inj IVP ONE ×2 (10:30→12:00)
[2020-01-06 10:31] LABS: APPEARANCE,URINE SLIGHTLY CLOUDY; BILIRUBIN, URINE NEGATIVE (NEGATIVE); GLUCOSE, URINE (UA) NEGATIVE (NEGATIVE); KETONES,URINE 3+ (NEGATIVE); LEUKOCYTE ESTERASE ,URINE 1+ (NEGATIVE); NITRITE,URINE NEGATIVE (NEGATIVE); PH,URINE 9 (4.5-8.0); PROTEIN,URINE 2+ (NEGATIVE); UROBILINOGEN,URINE 4 MG/DL (0.0-1.0)
[2020-01-06 10:33] LABS: COLOR,URINE YELLOW; HEMATOCRIT 42.1 % (37.0-47.0); HEMOGLOBIN 14.5 G/DL (12.0-16.0); MEAN CORPUSCULAR VOLUME 83 FL (80-99); PLATELET COUNT 185 K/UL (150-450); RED BLOOD COUNT 5.06 M/UL (4.20-5.40); RED CELL DISTRIBUTION WIDTH 11.9 % (11.6-14.8); WHITE BLOOD COUNT 9.5 K/UL (4.8-10.8)
[2020-01-06] MEDS ORDERED: DiphenhydrAMINE 50mg/ml Inj ONE (10:37)
--- NOTE | 2020-01-06 10:37 | Emergency Room Report ---
History of Present Illness General Chief Complaint: Abdominal Pain Source: Patient Present Illness HPI Disclaimer: Please note that this report is being documented using [employer] technology. This can lead to erroneous entry secondary to incorrect interpretation by the dictating instrument. HPI: 29-year-old female presents by EMS from home due to abdominal pain. She reports left-sided abdominal pain that is 10 out of 10 nonradiating. She reports decreased urine output and constipation for 2 days. She has a history of chronic abdominal pain and cyclical vomiting syndrome, kidney stones, endometriosis, dysmenorrhea to name a few. She has been vomiting for the past 2 days. She denies fevers. Last episode of abdominal pain was approximately 2 months ago. PMH: As above PSH: Reviewed Social Hx: She denies smoking drinking or illicit drug use Allergies: Coded Allergies: ASCORBIC ACID (Verified Allergy, Unknown, 11/30/18) ORANGE (Unverified Allergy, Unknown, 12/19/18) Uncoded Allergies: VITAMIN C (Allergy, Severe, 01/17/14) COVID-19 Screening Contact w/high risk pt: No Recent Travel to affected area: No Experienced COVID-19 symptoms?: No Patient History Last Menstrual Period: 01/04/20 Now: No Reviewed Nursing Documentation: PMH: Agreed; PSxH: Agreed Nursing Documentation-PMH Hx Hypertension: No Hx Pacemaker: No Hx Asthma: No Hx COPD: No Hx Diabetes: No Hx Cancer: No Hx Gastrointestinal Problems: Yes Hx Dialysis: No Hx Neurological Problems: No Hx Cerebrovascular Accident: No Hx Seizures: No Review of Systems All Other Systems: negative except mentioned in HPI Physical Exam Vital Signs Date Time Temp Pulse Resp B/P (MAP) Pulse Ox O2 Delivery O2 Flow Rate FiO2 01/06/20 10:08 99.0 109 18 121/71 (88) 100 Room Air Sp02 EP Interpretation: reviewed, normal General Appearance: well appearing, mild distress, other - Patient appears in mild distress due to pain Head: normocephalic, atraumatic Eyes: bilateral eye PERRL, bilateral eye EOMI ENT: hearing grossly normal, moist mucus membranes Neck: full range of motion, supple Respiratory: lungs clear, normal breath sounds, no rhonchi, no respiratory distress, no retraction, no wheezing Cardiovascular #1: normal peripheral pulses, no murmur, tachycardia Gastrointestinal: soft, non-distended, no guarding, tenderness - Left lower quadrant tenderness noted Neurologic: alert, oriented x3, no focal defects Skin: normal color, warm/dry Medical Decision Making Diagnostic Impression: Primary Impression: Abdominal pain Additional Impression: UTI ER Course MDM: Patient presents with abdominal pain. Differential included but not limited to constipation, UTI, endometriosis, dysmenorrhea, recurrent kidney stone to name a few. Clinical course-IV inserted, saline bolus, antiemetics, pain control given. Sound of the kidneys ordered to evaluate for any evidence of hydronephrosis. Urinalysis was sent. Laboratory studies were sent. Ultrasound did not demonstrate any evidence of hydronephrosis and a stable kidney stone. Labs -urinalysis with leukocytes, negative nitrites, bacteria noted On reevaluation: Pain improved. No active vomiting. I did give multiple doses of pain medication but did inform patient that pain medications may worsen her constipation. I suspect her pain is mainly from her history of endometriosis. Low suspicion for surgical abdomen at this time. She was discharged with analgesics, laxative, antibiotic and return precautions Plan-discharge home with outpatient follow-up and return precautions Laboratory Tests Test 01/06/20 10:18 White Blood Count 9.5 K/UL (4.8-10.8) Red Blood Count 5.06 M/UL (4.20-5.40) Hemoglobin 14.5 G/DL (12.0-16.0) Hematocrit 42.1 % (37.0-47.0) Mean Corpuscular Volume 83 FL (80-99) Mean Corpuscular Hemoglobin 28.7 PG (27.0-31.0) Mean Corpuscular Hemoglobin Concent 34.4 G/DL (32.0-36.0) Red Cell Distribution Width 11.9 % (11.6-14.8) Platelet Count 185 K/UL (150-450) Mean Platelet Volume 6.9 FL (6.5-10.1) Neutrophils (%) (Auto) % (45.0-75.0) Lymphocytes (%) (Auto) % (20.0-45.0) Monocytes (%) (Auto) % (1.0-10.0) Eosinophils (%) (Auto) % (0.0-3.0) Basophils (%) (Auto) % (0.0-2.0) Differential Total Cells Counted 100 Neutrophils % (Manual) 76 % (45-75) H Lymphocytes % (Manual) 18 % (20-45) L Monocytes % (Manual) 6 % (1-10) Eosinophils % (Manual) 0 % (0-3) Basophils % (Manual) 0 % (0-2) Band Neutrophils 0 % (0-8) Platelet Estimate Adequate Platelet Morphology See comment Clumped Platelets 1+ Red Blood Cell Morphology Normal Urine Color Yellow Urine Appearance Slightly cloudy Urine pH 9 (4.5-8.0) Urine Specific [place] 1.015 (1.005-1.035) Urine Protein 2+ (NEGATIVE) H Urine Glucose (UA) Negative (NEGATIVE) Urine Ketones 3+ (NEGATIVE) H Urine Blood 4+ (NEGATIVE) H Urine Nitrite Negative (NEGATIVE) Urine Bilirubin Negative (NEGATIVE) Urine Urobilinogen 4 MG/DL (0.0-1.0) H Urine Leukocyte Esterase 1+ (NEGATIVE) H Urine RBC 2-4 /HPF (0 - 2) H Urine WBC 0-2 /HPF (0 - 2) Urine Squamous Epithelial Cells Occasional /LPF Urine Amorphous Sediment Many /LPF (NONE) H Urine Bacteria Occasional /HPF (NONE) Sodium Level 138 MMOL/L (136-145) Potassium Level 3.4 MMOL/L (3.5-5.1) L Chloride Level 103 MMOL/L (98-107) Carbon Dioxide Level 26 MMOL/L (21-32) Anion Gap 9 mmol/L (5-15) Blood Urea Nitrogen 8 mg/dL (7-18) Creatinine 0.8 MG/DL (0.55-1.30) Estimated Glomerular Filtration Rate > 60 mL/min (>60) Glucose Level 110 MG/DL (74-106) H Calcium Level 9.3 MG/DL (8.5-10.1) Total Bilirubin 0.8 MG/DL (0.2-1.0) Aspartate Amino Transferase (AST) 20 U/L (15-37) Alanine Aminotransferase (ALT) 28 U/L (12-78) Alkaline Phosphatase 63 U/L (46-116) Total Protein 7.4 G/DL (6.4-8.2) Albumin 4.0 G/DL (3.4-5.0) Globulin 3.4 g/dL Albumin/Globulin Ratio 1.2 (1.0-2.7) Lipase 90 U/L (73-393) Last Vital Signs Date Time Temp Pulse Resp B/P (MAP) Pulse Ox O2 Delivery O2 Flow Rate FiO2 01/06/20 10:27 102 20 Room Air 01/06/20 10:08 99.0 121/71 (88) 100 Status: improved Disposition: HOME, SELF-CARE Condition: Improved Scripts Hydrocodone Bit/Acetaminophen 5-325* (NORCO 5-325 TABLET*) 1 Each Tablet 1 TAB ORAL Q6H PRN for FOR PAIN, #10 TAB 0 Refills Prov: Mike Ruiz M.D. 01/06/20 Polyethylene Glycol 3350* (MIRALAX*) 17 Gm Powd.pack 17 GM ORAL DAILY, #30 PACKET Prov: Mike Ruiz M.D. 01/06/20 Nitrofurantoin Monohyd/M-Cryst* (MACROBID 100 MG*) 100 Mg Capsule 100 MG ORAL EVERY 12 HOURS, #14 CAP Prov: Mike Ruiz M.D. 01/06/20 Referrals: [facility],REFERRING (PCP) Mike Ruiz M.D. January 06, 2020 10:37
[2020-01-06 10:50] LABS: ANION GAP 9 mmol/L (5-15); BLOOD UREA NITROGEN 8 mg/dL (7-18); CALCIUM 9.3 MG/DL (8.5-10.1); CARBON DIOXIDE 26 MMOL/L (21-32); CHLORIDE 103 MMOL/L (98-107); CREATININE 0.8 MG/DL (0.55-1.30); POTASSIUM 3.4 MMOL/L (3.5-5.1); SODIUM 138 MMOL/L (136-145)
[2020-01-06 10:57] LABS: ALANINE AMINOTRANSFERASE 28 U/L (12-78); ALBUMIN/GLOBULIN RATIO 1.2 (1.0-2.7); ALKALINE PHOSPHATASE 63 U/L (46-116); ASPARTATE AMINO TRANSFERASE 20 U/L (15-37); BILIRUBIN,TOTAL 0.8 MG/DL (0.2-1.0)
[2020-01-06 11:08] VITALS: BP 121/71
--- NOTE | 2020-01-06 12:53 | Diagnostic Imaging Report ---
Indication: Left flank pain Technique: Grayscale and duplex images of the kidneys, retroperitoneum, and bladder were obtained. Comparison: 05/03/2016. Also abdomen pelvis CT dated 05/18/2019 Findings: Right kidney measures 10.3 cm in length. Left kidney measures 10 cm in length. Both kidneys demonstrate normal echogenicity. No hydronephrosis. Within the left lower pole collecting system, there is a 7 mm calculus. This has been described on prior ultrasound as well as multiple prior CT scans.. Normal inferior vena cava. Bladder is nearly empty. Impression: Nonobstructive left lower pole calculus, also previously described. Negative for hydronephrosis.
--- NOTE | 2020-01-06 13:19 | NUR ---
ED Nurse Note: Pt is still complaining of unrelieved pain on abdominal region; notified ERMD.
[2020-01-06 13:32] VITALS: BP 108/61
[2020-01-06] MEDS ORDERED: NITROFURANTOIN100 M2 ORAL (13:39)
[2020-01-06] MEDS ORDERED: MIRALAX17 G2 ORAL (13:39)
[2020-01-06] MEDS ORDERED: NORCO 5-325 TA1 EAC1 ORAL (13:39)
[2020-01-06 13:54] VITALS: BP 110/64
== END 2020-01-06 13:54 | disposition home or self-care (01) ==
LOC: EDBD 09:49 → EMR 10:29
DX: N39.0 Urinary tract infection, site not specified (principal); R10.9 Unspecified abdominal pain; Z91.018 Allergy to other foods
CPT/HCPCS: 36415; 76770; 80053; 81003; 83690; 85007; 85025; 96361; 96374; 96375; 96376; J1200; J2270; J2405; J7030; Z7502; 99284